=== PATIENT | female | born 1950 | race Caucasian/White ===

== ENCOUNTER 2017-01-20 11:01 | Outpatient (CLI) | payer MEDICARE, OTHER | END 2017-01-20 11:02 | disposition home or self-care (01) | LOC: DI 11:01 | PROVIDERS: ATTEND Internal Medicine Cardiovascular Disease | DX: I48.91 Unspecified atrial fibrillation (principal); I51.7 Cardiomegaly | CPT/HCPCS: 93306 ==

== ENCOUNTER 2021-02-12 18:06 | Outpatient (CLI) | payer MEDICARE, OTHER | END 2021-02-12 18:07 | disposition EMS.NT | LOC: EMS 18:06 | DX: R10.11 Right upper quadrant pain (principal); R11.10 Vomiting, unspecified; R53.1 Weakness ==

== ENCOUNTER 2021-02-12 19:22 | Emergency (ER) | payer MEDICARE, OTHER ==
[2021-02-12 19:42] LABS: BASOPHILS % (AUTO) 0.3 %; EOSINOPHILS % (AUTO) 0.1 %; HCT - HEMATOCRIT 38.4 % (37.0-47.0); LYMPHOCYTES # (AUTO) 2.2 10^3/uL (1.5-3.5); MEAN CORPUSCULAR HEMOGLOBIN 27.4 pg (27.0-31.0); MEAN CORPUSCULAR HGB CONC 31.3 g/dL (32.0-36.0); MEAN CORPUSCULAR VOLUME 87.7 fL (81.0-99.0); MEAN PLATELET VOLUME 8.8 fL (7.9-10.8); MONOCYTES # (AUTO) 0.9 10^3/uL (0.0-1.0); MONOCYTES % (AUTO) 6.7 %; NEUTROPHILS # (AUTO) 10.5 10^3/uL (1.5-6.6); NEUTROPHILS % (AUTO) 76.5 %; PLT - PLATELET COUNT 515 10^3/uL (130-450); RED BLOOD COUNT 4.38 10^6/uL (4.20-5.40); RED CELL DISTRIBUTION WIDTH 13.2 % (12.0-15.0); WHITE BLOOD COUNT 13.7 x10^3/uL (4.8-10.8)
--- NOTE | 2021-02-12 19:54 | ED Physician Documentation ---
PD HPI NVD - Stated complaint Stated Complaint: VOMITING,CAN'T EAT - Chief complaint Chief Complaint: Abd Pain - History obtained from History obtained from: Patient - History of Present Illness Timing - onset: How many weeks ago (1-2) Timing - duration: Weeks Timing - details: Intermittant Associated symptoms: Abdominal pain. No: Fever Improved by: Other (nothing) Worsened by: Eating Similar symptoms before: No diagnosis Recently seen: Not recently seen - Additonal information Additional information: c/o 1-2 weeks of gradually increasing nausea, vomiting, and upper abdominal pain with PO intake, both solids and liquids. Review of Systems Constitutional: denies: Fever, Chills, Sweats Eyes: reports: Reviewed and negative Ears: reports: Reviewed and negative Nose: reports: Reviewed and negative Throat: reports: Reviewed and negative Cardiac: reports: Reviewed and negative Respiratory: reports: Reviewed and negative GI: reports: Abdominal Pain, Nausea, Vomiting. denies: Abdominal Swelling, Constipation, Diarrhea, Hematemesis, Bloody / black stool : denies: Dysuria, Frequency Skin: reports: Reviewed and negative Musculoskeletal: reports: Reviewed and negative Neurologic: reports: Reviewed and negative PD PAST MEDICAL HISTORY - Past Medical History Past Medical History: Yes - Past Surgical History General: Gastric surgery ("stomach stapling" per patient) - Present Medications Home Medications: Ambulatory Orders Medication Instructions Recorded Confirmed Celecoxib [Celebrex] 200 mg PO DAILY 02/12/21 02/12/21 Metformin HCl [Glucophage] 1,000 mg PO BID 02/12/21 02/12/21 Metoprolol Tartrate [Lopressor] 50 mg PO BID 02/12/21 02/12/21 traMADol [Ultram] 50 mg PO QID PRN 02/12/21 02/12/21 - Allergies Allergies/Adverse Reactions: Allergies Allergy/AdvReac Type Severity Reaction Status Date / Time morphine Allergy Itching Verified 02/12/21 19:29 epinephrine AdvReac Unknown Verified 02/13/21 01:23 - Living Situation Living Situation: reports: With spouse/s.o. Living Arrangement: reports: At home - Social History Does the pt smoke?: No PD ED PE NORMAL - Vitals Vital signs reviewed: Yes - General General: Alert and oriented X 3, No acute distress, Well developed/nourished - HEENT HEENT: Moist mucous membranes - Neck Neck: Supple, no meningeal sign - Cardiac Cardiac: No murmur - Respiratory Respiratory: No respiratory distress, Clear bilaterally - Abdomen Abdomen: Soft, Non distended - Back Back: No CVA TTP - Derm Derm: Normal color, Warm and dry, No rash - Extremities Extremities: No edema PD ED PE EXPANDED - Cardiac Cardiac: Tachy, Regular Rhythm - Abdomen Abdomen: Tender to palpation, LUQ, LLQ Results - Vitals Vitals: Vital Signs - 24 hr 02/13/21 02/13/21 02/13/21 11:13 14:00 15:27 Temperature 36.7 C 36.7 C Heart Rate 108 H 115 H 115 H Respiratory 23 20 20 Rate Blood Pressure 141/89 H 143/58 H 122/70 O2 Saturation 100 96 96 02/13/21 17:00 Temperature 36.7 C Heart Rate 112 H Respiratory 16 Rate Blood Pressure 125/98 H O2 Saturation 96 Oxygen O2 Source Room air - Labs Labs: Microbiology 02/13/21 02:00 Urine Culture - Preliminary Urine,Clean Catch Laboratory Tests 02/12/21 02/12/21 02/12/21 19:38 19:38 22:56 WBC 13.7 H RBC 4.38 Hgb 12.0 Hct 38.4 MCV 87.7 MCH 27.4 MCHC 31.3 L RDW 13.2 Plt Count 515 H MPV 8.8 Neut # (Auto) 10.5 H Lymph # (Auto) 2.2 Hinds # (Auto) 0.9 Eos # (Auto) 0.0 Baso # (Auto) 0.0 Absolute Nucleated RBC 0.00 Nucleated RBC % 0.0 Sodium 138 Potassium 3.7 Chloride 87 L Carbon Dioxide 33 H Anion Gap 18.0 H BUN 18 Creatinine 1.2 H Estimated GFR (MDRD) 44 L Glucose 251 H Lactic Acid 1.8 Calcium 8.5 Total Bilirubin 1.7 H AST 20 ALT 24 Alkaline Phosphatase 148 H Total Protein 8.3 H Albumin 2.9 L Globulin 5.4 H Albumin/Globulin Ratio 0.5 L Lipase 106 H Urine Color Urine Clarity Urine pH Ur Specific Davison Urine Protein Urine Glucose (UA) Urine Ketones Urine Occult Blood Urine Nitrite Urine Bilirubin Urine Urobilinogen Ur Leukocyte Esterase Urine RBC Urine WBC Ur Squamous Epith Cells Urine Bacteria Ur Microscopic Review Urine Culture Comments Nasal Adenovirus (PCR) Nasal B. parapertussis DNA (PCR) Nasal Coronavir 229E PCR Nasal Coronavir HKU1 PCR Nasal Coronavir NL63 PCR Nasal Coronavir OC43 PCR Nasal Enterovir/Rhinovir PCR Nasal Influenza B PCR Nasal Influenza A PCR Nasal Parainfluen 1 PCR Nasal Parainfluen 2 PCR Nasal Parainfluen 3 PCR Nasal Parainfluen 4 PCR Nasal RSV (PCR) Nasal B.pertussis DNA PCR Nasal C.pneumoniae (PCR) Carl Human Metapneumo PCR Nasal M.pneumoniae (PCR) Nasal SARS-CoV-2 (PCR) 02/13/21 02/13/21 00:36 02:00 WBC RBC Hgb Hct MCV MCH MCHC RDW Plt Count MPV Neut # (Auto) Lymph # (Auto) Hinds # (Auto) Eos # (Auto) Baso # (Auto) Absolute Nucleated RBC Nucleated RBC % Sodium Potassium Chloride Carbon Dioxide Anion Gap BUN Creatinine Estimated GFR (MDRD) Glucose Lactic Acid Calcium Total Bilirubin AST ALT Alkaline Phosphatase Total Protein Albumin Globulin Albumin/Globulin Ratio Lipase Urine Color YELLOW Urine Clarity SL. CLOUDY Urine pH 7.5 Ur Specific Davison 1.010 Urine Protein 100 H Urine Glucose (UA) NEGATIVE Urine Ketones 15 H Urine Occult Blood NEGATIVE Urine Nitrite NEGATIVE Urine Bilirubin NEGATIVE Urine Urobilinogen 0.2 (NORMAL) Ur Leukocyte Esterase NEGATIVE Urine RBC 0-5 Urine WBC 6-10 H Ur Squamous Epith Cells FEW Squamous Urine Bacteria Many H Ur Microscopic Review INDICATED Urine Culture Comments INDICATED Nasal Adenovirus (PCR) NOT DETECTED Nasal B. parapertussis DNA (PCR) NOT DETECTED Nasal Coronavir 229E PCR NOT DETECTED Nasal Coronavir HKU1 PCR NOT DETECTED Nasal Coronavir NL63 PCR NOT DETECTED Nasal Coronavir OC43 PCR NOT DETECTED Nasal Enterovir/Rhinovir PCR NOT DETECTED Nasal Influenza B PCR NOT DETECTED Nasal Influenza A PCR NOT DETECTED Nasal Parainfluen 1 PCR NOT DETECTED Nasal Parainfluen 2 PCR NOT DETECTED Nasal Parainfluen 3 PCR NOT DETECTED Nasal Parainfluen 4 PCR NOT DETECTED Nasal RSV (PCR) NOT DETECTED Nasal B.pertussis DNA PCR NOT DETECTED Nasal C.pneumoniae (PCR) NOT DETECTED Carl Human Metapneumo PCR NOT DETECTED Nasal M.pneumoniae (PCR) NOT DETECTED Nasal SARS-CoV-2 (PCR) NOT DETECTED - Rads (name of study) CT A/P with IV contrast Radiology: Prelim report reviewed, See rad report RUQ US Radiology: Prelim report reviewed, See rad report PD MEDICAL DECISION MAKING - ED course Complexity details: reviewed results, re-evaluated patient, considered differential, d/w patient ED course: US findings are c/w cholecystitis. CT A/P demonstrates not only acute cholecystitis, but also findings of foci of air adjacent to the gallbladder "could be from a fistula with the colon and/or gangrenous cholecysitis or emphysematous cholecystitis with perforation" (per radiologist's interpretation). I did not receive a reading on the CT from radiology until 12:10 AM. At 12:15 AM, I discussed the case with Dr. Peoples. He will review films and call back. [place] back from Dr. Peoples at approximately 12:25, he recommends transfer to facility that is appropriate for patient's BMI (Dr. Peoples says [facility] has limit of 52 BMI). No beds available at [facility]. As of 01:00, [facility] [place] been contacted by [facility] and we are waiting to hear back from them. Patient is resting comfortably, NAD and awake, alert, and oriented x 3. On abdominal exam, she has epigastric and LUQ tenderness, now with mild/moderate RUQ tenderness but there is no rebound nor guarding. I heard back from Dr. Middleton, surgeon dental practitioner at [facility]. He says he cannot accept patient due to lack of beds. Subsequently I spoke with Dr. Garland at [facility]; cannot accept due to lack of beds but patient will be kept on waiting list. [facility] contacted. No beds available, will be placed on wait list. [facility] contacted, no beds available. I recontacted Dr. Peoples, reiterates patient cannot be admitted to [facility] and recommends continuing to await bed availability elsewhere. At end of my shift, [facility] [place] and they again say they cannot take this patient due to lack of bed availability. also was recontacted and they also say they have no beds but will call back when one is available. Care of patient signed out to Dr. Zhang at end of my shift as patient awaits disposition. I then heard from Dr. Townsend, dental practitioner surgery at [facility]. He says no beds are available and that [facility] would not have beds any different from [facility] Departure - Departure Disposition: 02 Transfer Acute Care Hosp Clinical Impression: Cholecystitis Discharge Date/Time: 02/13/21 17:14
[2021-02-12 19:55] LABS: ALBUMIN 2.9 g/dL (3.2-5.5); ALBUMIN/GLOBULIN RATIO 0.5 (1.0-2.2); BILIRUBIN,TOTAL 1.7 mg/dL (0.2-1.0); CALCIUM 8.5 mg/dL (8.5-10.3); CREATININE 1.2 mg/dL (0.4-1.0); POTASSIUM 3.7 mmol/L (3.5-5.0); TOTAL PROTEIN 8.3 g/dL (6.7-8.2)
[2021-02-12] MEDS ORDERED: SODIUM CHLORIDE 0.9% 1,000 ML IV STA (19:56)
[2021-02-12] MEDS ORDERED: ONDANSETRON 4 MG/2 ML VIAL IVP STA (19:56)
[2021-02-12] MEDS ORDERED: IOVERSOL 320 100 ML VIAL IVP ONE ×2 (22:02→22:41)
[2021-02-13] MEDS ORDERED: PIPERACILLIN/TAZOBACTAM 4.5 GM in SODIUM CHLORIDE 0.9% MINIBAG 100 ML IV STA (00:32)
[2021-02-13] MEDS ORDERED: SODIUM CHLORIDE 0.9% 1,000 ML IV STA ×3 (00:44→15:28)
[2021-02-13 03:33] LABS: B. PARAPERTUSSIS- RESP PCR PAN NOT DETECTED; B. PERTUSSIS- RESP PCR PANEL NOT DETECTED; C. PNEUMONIAE- RESP PCR PANEL NOT DETECTED; CORONAVIRUS 229E-RESP PCR NOT DETECTED; CORONAVIRUS HKU1-RESP PCR NOT DETECTED; CORONAVIRUS NL63-RESP PCR NOT DETECTED; CORONAVIRUS OC43-RESP PCR NOT DETECTED; HUMAN METAPNEUMOVIRUS NOT DETECTED; INFLUENZA A- RESP PCR PANEL NOT DETECTED; INFLUENZA B - RESP PCR PANEL NOT DETECTED; M. PNEUMONIAE- RESP PCR PANEL NOT DETECTED; PARAINFLUENZA VIRUS 1 NOT DETECTED; PARAINFLUENZA VIRUS 2 NOT DETECTED; PARAINFLUENZA VIRUS 3 NOT DETECTED; PARAINFLUENZA VIRUS 4 NOT DETECTED; RHINOVIRUS/ENTEROVIRUS NOT DETECTED; RSV- RESP PCR PANEL NOT DETECTED; SARS-CoV-2 -RESP PCR PANEL NOT DETECTED
[2021-02-13 03:35] LABS: BILIRUBIN,URINE NEGATIVE (NEGATIVE); CLARITY,URINE SL. CLOUDY (CLEAR); GLUCOSE, URINE (UA) NEGATIVE (NEGATIVE); ICTOTEST,URINE NEGATIVE; KETONES,URINE (UA) 15 mg/dL (NEGATIVE); LEUKOCYTE ESTERASE, URINE NEGATIVE (NEGATIVE); NITRITE,URINE NEGATIVE (NEGATIVE); OCCULT BLOOD,URINE NEGATIVE (NEGATIVE); PH,URINE 7.5 PH (5.0-7.5); PROTEIN,URINE 100 mg/dL (NEGATIVE); UROBILINOGEN,URINE 0.2 (NORMAL) E.U./dL (NORMAL)
[2021-02-13 03:36] LABS: BACTERIA,URINE Many /HPF (None Seen); RBC,URINE 0-5 /HPF (0-5); SQUAMOUS EPITHELIAL CELL,UR FEW Squamous (<= Few)
--- NOTE | 2021-02-13 10:02 | ED Physician Documentation ---
ED Addendum - Addendum Addendum: 02/13/21 10:00 70-year-old female with history of hypertension and atrial fibrillation has had a gastric stapling done more than 30 years ago has developed a difficulty eating 2 weeks ago with an acute pain followed by nausea and vomiting. Over the past 4 days she is not been able to keep nothing down and she has become dehydrated. She is presented to the emergency department with chief complaint of not able to eat. She is found to have Lyndsay cystitis with the appearance of potential gangrenous gallbladder. She has been hydrated overnight and no beds are available to handle this bariatric patient. Findings on her CT scan appear acute and are critical. The patient herself does not appear particularly ill she does appear dehydrated. She is not complaining of any significant pain. She is complaining that she is unable to tolerate oral intake. She does have elevated white blood cell count. She is getting intravenous fluid and Zosyn.This morning we are awaiting a potential bed at [facility] for this afternoon. We did consider potential for emergency department to emergency department transfer for critical finding and the patient appeared to well to invoke this critical maneuver. 02/13/21 10:03 02/13/21 13:00 hospitalist at [facility] has called us back willing to accept the patient in transfer.
[2021-02-13] MEDS ORDERED: PIPERACILLIN/TAZOBACTAM 3.375 GM in SODIUM CHLORIDE 0.9% MINIBAG 100 ML IV STA (10:06)
--- NOTE | 2021-02-13 10:58 | HISTORY & PHYSICAL EXAMINATION ---
Chief Complaint - Chief Complaint Chief Complaint: abdominal pain with nausea and vomiting History of Present Illness - History Obtained From Records Reviewed: yes History obtained from: pt and Exam Limitations: none - History of Present Illness HPI Comment/Other: She has had nearly 2 weeks of abdominal pain which more recently has localized to the epigastric and right upper quadrant area. She had chills 2 days ago. She had nausea and vomiting yesterday. In retrospect she had an episode of similar pain 1.5 years ago that lasted 2 to 3 days and a few episodes of mild pain in the interim. She was encouraged to go to the ED by her . Ct scan was obtained showing cholecystitis with small posterior abscess and infection/ inflammation involving the hepatic flexure colon, duodenum, common hepatic duct/ common bile duct. History - Past Medical History Endocrine/Autoimmune: reports: Type 2 diabetes - Past Surgical History General: reports: Gastric surgery ("stomach stapling" per patient) - Family & Social History Living arrangement: At home Living Situation: With spouse/s.o. - POLST Patient has POLST: No Meds/Allgy - Home Medications Home Medications: Ambulatory Orders Medication Instructions Recorded Confirmed Celecoxib [Celebrex] 200 mg PO DAILY 02/12/21 02/12/21 Metformin HCl [Glucophage] 1,000 mg PO BID 02/12/21 02/12/21 Metoprolol Tartrate [Lopressor] 50 mg PO BID 02/12/21 02/12/21 traMADol [Ultram] 50 mg PO QID PRN 02/12/21 02/12/21 - Allergies Allergies/Adverse Reactions: Allergies Allergy/AdvReac Type Severity Reaction Status Date / Time morphine Allergy Itching Verified 02/12/21 19:29 epinephrine AdvReac Unknown Verified 02/13/21 01:23 Review of Systems - Other Findings Other Findings: 10 pt ros as above otherwise unremarkable Exam - Vital Signs Reviewed Vital Signs: Yes Vital Signs: Vital Signs x48h Pulse Resp BP Pulse Ox 02/13/21 06:23 114 H 15 157/102 H 96 02/13/21 05:19 16 02/13/21 04:53 112 H 15 136/81 H 99 02/13/21 04:01 117 H 17 96 02/13/21 03:29 17 150/90 H 98 - Physical Exam General Appearance: positive: No acute distress, Alert Eyes Bilateral: positive: PERRL, EOMI, No scleral icterus ENT: positive: No signs of dehydration Neck: positive: No JVD Respiratory: positive: No respiratory distress Cardiovascular: positive: Regular rate & rhythm Abdomen: positive: No distention, Other (minimal right upper quadrant tenderness. no peritoneal signs) Skin: positive: Color nml Neurologic/Psychiatric: positive: Oriented x3 Conclusion/Plan - Problem List (1) Cholecystitis Conclusion/Plan: She has very significant gallbladder inflammation with hepatic flexure colon involvement and duodenal, hepatic duct involvement. She appears well and has a benign abdomen. We discussed in this situation surgery could make her worse instead of better. Risk of injury with surgery is high. An alternative may be medical management with cholecystostomy / drainage and antibiotics. She and her are very pleasant and understanding. Await transfer to hospital which can offer a higher level or care which includes interventional radiology recommended - Lab Results Fish Bones: 02/12/21 19:38 02/12/21 19:38 - Diagnostic Imaging Results Diagnostic Imaging Results: positive: Read independently (as above significant gallbladder inflammation with involvement duodenum, hepatic flexure colon, common bile duct with abscess/ small phlegmon)
--- NOTE | 2021-02-13 11:24 | Ultrasound Report ---
PROCEDURE: Abdomen Limited INDICATIONS: upper abdominal pain with PO intake TECHNIQUE: Real-time scanning was performed of the abdominal and retroperitoneal organs, with image documentatio n. COMPARISON: None. FINDINGS: Liver: Liver is enlarged measuring 17.9 cm. No focal lesion is identified. Echogenicity is not well evaluated secondary to patient habitus. There is suspected to be a component of steatosis. Gallbladder: Multiple foci of increased echogenicity are present within the gallbladder lumen. Wall i s thickened measuring 4.0 mm. Biliary ducts: No gross intra or extrahepatic biliary dilation. However, this is considered limited i n evaluation. . Kidneys: Kidneys are normal in size and echotexture. Right kidney measures 9.7 cm long. No hydrone phrosis or nephrolithiasis. No solid masses. IMPRESSION: Significantly limited exam. Cholelithiasis with gallbladder wall thickening most likely technical support representative of acute cholecystitis. The above findings are concordant with preliminary report. Reviewed by: Nevin Anne MD on 02/13/2021 11:23 AM PDT Approved by: Nevin Anne MD on 02/13/2021 11:23 AM PDT Station ID: [id number]
--- NOTE | 2021-02-13 14:07 | CT Report ---
PROCEDURE: Abdomen/Pelvis W INDICATIONS: abd. pain CONTRAST: IV CONTRAST: Optiray 320 ml: 100 PO CONTRAST: *NO PO CONTRAST TECHNIQUE: After the administration of oral contrast, 5 mm thick sections acquired from the diaphragms to the sy mphysis. 5 mm thick coronal and sagittal reformats were acquired. For radiation dose reduction, the following was used: automated exposure control, adjustment of mA and/or kV according to patient siz e. COMPARISON: None. FINDINGS: Image quality: Excellent. ABDOMEN: Lung bases: Lung bases are clear. Heart size is normal. Solid organs: Liver is enlarged with steatosis. The spleen is normal in size and enhancement. Gall bladder demonstrates stones and wall thickening. Air is noted at the fundus, as well as the fundus/l iver interface. There is an adjacent loop of bowel with ill defined fluid and air. Biliary system is non dilated. Pancreas enhances normally. No adrenal nodules. Kidneys demonstrate normal size an d enhancement, without hydronephrosis. Nodes and vessels: No retroperitoneal or mesenteric adenopathy by size criteria. Aorta and inferior vena cava are normal in size. Miscellaneous: Fat containing ventral hernia is present. PELVIS: Genitourinary: Bladder wall thickness is normal. Miscellaneous: No inguinal hernias or adenopathy. Bones: No suspicious bony lesions. No vertebral body compression fractures. IMPRESSION: 1. Gallstones with wall thickening and air most suggestive of cholecystitis, concerning for gangreno us/emphysematous cholecystitis with perforation. 2. Potential fistulous connection with adjacent bowel loop is present. The above findings are concordant with preliminary report. Reviewed by: Nevin Anne MD on 02/13/2021 2:06 PM PDT Approved by: Nevin Anne MD on 02/13/2021 2:06 PM PDT Station ID: [id number]
[2021-02-13 17:02] VITALS: BP 125/98
== END 2021-02-13 17:14 | disposition short-term general hospital (02) ==
LOC: ED 19:22
DX: K81.0 Acute cholecystitis (principal); K63.0 Abscess of intestine; E86.0 Dehydration; Z98.84 Bariatric surgery status; Z68.44 Body mass index [BMI] 60.0-69.9, adult; I10 Essential (primary) hypertension; E11.9 Type 2 diabetes mellitus without complications; Z79.84 Long term (current) use of oral hypoglycemic drugs; Z20.822 Contact with and (suspected) exposure to COVID-19
CPT/HCPCS: 36415; 74177; 76705; 80053; 81001; 83605; 83690; 85025; 87086; 87181; 87631; 96361; 96365; 96366; 96375; 99283; 99285; Q9967; 0202U; 81003

== ENCOUNTER 2022-03-31 09:06 | Outpatient (CLI) | payer MEDICARE, OTHER | END 2022-03-31 09:07 | disposition home or self-care (01) | LOC: DI 09:06 | PROVIDERS: ATTEND Student in an Organized Health Care Education/Training Program | DX: Z01.810 Encounter for preprocedural cardiovascular examination (principal); I48.91 Unspecified atrial fibrillation | CPT/HCPCS: 93306 ==

== ENCOUNTER 2022-04-08 06:46 | Day surgery (SDC) | payer MEDICARE, OTHER ==
[2022-04-08] MEDS ORDERED: LACTATED RINGERS 1,000 ML IV ONE ×2 (07:17→08:48)
[2022-04-08] MEDS ORDERED: KETAMINE 500 MG/10 ML VIAL ONE (07:33)
[2022-04-08] MEDS ORDERED: MIDAZOLAM 2 MG/2 ML VIAL ONE (07:33)
[2022-04-08] MEDS ORDERED: PROPOFOL 200 MG/20 ML VIAL IVP ONE ×4 (07:39→09:21)
--- NOTE | 2022-04-08 08:31 | ANESTHESIA ---
Pre-Anesthesia VS, & Labs - Diagnosis ANEMIA - Procedure EGD/Colonoscopy Vital Signs: Temp Pulse Resp BP Pulse Ox 36.3 C L 113 H 20 142/78 H 93 04/08/22 07:08 04/08/22 07:08 04/08/22 07:08 04/08/22 07:08 04/08/22 07:08 Height: 5 ft 5 in Weight (kg): 170.1 kg Body Mass Index: 62.4 BMI Classification: Morbidly Obese - NPO >8 hours - Is Patient ?: No - Lab Results Current Lab Results: Laboratory Tests 04/08/22 07:11: POC Whole Bld Glucose 162 H Home Medications and Allergies Home Medications: Ambulatory Orders Acetaminophen [Pain Relief Extra Strength] 500 mg PO QID PRN 03/24/22 Furosemide [Lasix] 40 mg PO DAILY PRN 03/24/22 LORazepam [Ativan] 1 mg PO QPM PRN 03/24/22 Celecoxib [Celebrex] 200 mg PO DAILY 02/12/21 Metformin HCl [Glucophage] 1,000 mg PO BID 02/12/21 Metoprolol Tartrate [Lopressor] 25 mg PO BID 02/12/21 traMADol [Ultram] 100 mg PO QID 02/12/21 Albuterol Sulf [Ventolin Hfa Inhaler] 2 puffs INH Q4HR PRN 03/06/22 Aspirin [[place] Aspirin] 81 mg PO DAILY 03/06/22 oxyCODONE [Roxicodone] 1 - 2 tab PO Q6HR PRN 03/06/22 Acetaminophen [Pain Relief Extra Strength] 500 mg PO QID PRN 03/24/22 Furosemide [Lasix] 40 mg PO DAILY PRN 03/24/22 LORazepam [Ativan] 1 mg PO QPM PRN 03/24/22 Allergies/Adverse Reactions: Allergies Allergy/AdvReac Type Severity Reaction Status Date / Time hydrocodone [From Vicodin] Allergy Respiratory Verified 04/08/22 06:17 morphine Allergy Itching Verified 04/08/22 06:17 epinephrine AdvReac increased Verified 04/08/22 06:17 heart rate Anes History & Medical History - Anesthetic History Anesthesia Complications: reports: No previous complications Family history of Anesthesia Complications: Denies Family history of Malignant Hyperthermia: Denies - Medical History Cardiovascular: reports: Congestive heart failure, Hypertension, Atrial fibrillation Pulmonary: reports: Shortness of breath Gastrointestinal: reports: None, Other (pos giuac) Urinary: reports: None Musculoskeletal: reports: Osteoarthritis, Other (uses wheelchair) Endocrine/Autoimmune: reports: Type 2 diabetes Skin: reports: None, Rosacea Smoking Status: Never smoker Psychosocial: reports: Alcohol History of Cancer?: No Other Past Medical History: morbid obesity. BMI 62.4 - Surgical History General: reports: Cholecystectomy, Gastric surgery, Other Exam General: Alert, Oriented x3, Cooperative Dental: WNL Mouth Openin Fingerbreadth Mallampati classification: IV Thyromental Distance: less than 4 cm Respiratory: Lungs clear Cardiovascular: Regular rate Neurological: Other (wheelchair) Mental/Cognitive Status: Alert/Oriented X3 Plan Anesthesia Type: General Consent for Procedure(s) Verified and Reviewed: Yes Code Status: Attempt Resuscitation ASA classification: 4-Incapacitating disease Is this case an emergency?: No
[2022-04-08 09:47] VITALS: BP 149/68
--- NOTE | 2022-04-08 13:17 | ANESTHESIA POST OP EVALUATION ---
Anesthesia Post Eval - Post Anesthesia Eval Vitals: Last Vital Signs Temp 36.3 C L 04/08/22 09:30 Pulse 102 H 04/08/22 09:30 Resp 20 04/08/22 09:30 BP 149/68 H 04/08/22 09:30 Pulse Ox 95 04/08/22 09:30 CV Function Including HR & BP: Stable Pain Control: Satisfactory Nausea & Vomiting: Negative Mental Status: Baseline Respiratory Status: Airway Patent Hydration Status: Satisfactory Anesthesia Complications: None
== END 2022-04-08 06:47 | disposition home or self-care (01) ==
LOC: SDS 06:46
PROVIDERS: ATTEND Surgery
PROC: 0DJD8ZZ Inspection of Lower Intestinal Tract, Via Natural or Artificial Opening Endoscopic (ICD-10-PCS; principal; 2022-04-08 07:30)
PROC: 0DJ08ZZ Inspection of Upper Intestinal Tract, Via Natural or Artificial Opening Endoscopic (ICD-10-PCS; 2022-04-08 07:30)
DX: D50.9 Iron deficiency anemia, unspecified (principal); K31.89 Other diseases of stomach and duodenum; K57.30 Diverticulosis of large intestine without perforation or abscess without bleeding; E66.01 Morbid (severe) obesity due to excess calories; Z68.44 Body mass index [BMI] 60.0-69.9, adult; I11.0 Hypertensive heart disease with heart failure; I50.9 Heart failure, unspecified; I48.91 Unspecified atrial fibrillation; E11.9 Type 2 diabetes mellitus without complications
CPT/HCPCS: 43235; 45378; J7120

== ENCOUNTER 2022-11-08 06:42 | Outpatient (CLI) | payer MEDICARE, OTHER | END 2022-11-08 06:43 | disposition critical access hospital (66) | LOC: EMS 06:42 | DX: R10.13 Epigastric pain (principal); R11.0 Nausea; R00.0 Tachycardia, unspecified | CPT/HCPCS: A0425; A0429 ==

== ENCOUNTER 2022-11-08 07:19 | Emergency (ER) | payer MEDICARE, OTHER ==
--- NOTE | 2022-11-08 07:39 | ED Physician Documentation ---
PD HPI ABD PAIN - Stated complaint Stated Complaint: ABD PX - Chief complaint Chief Complaint: Abd Pain - History obtained from History obtained from: Patient - History of Present Illness Timing - onset: How many weeks ago (2) Timing - duration: Weeks (2) Timing - details: Gradual onset, Still present, Waxing and waning Quality: Cramping, Aching, Pain Location: RUQ, Epigastric Improved by: Laying still. No: Vomiting Worsened by: Eating, Moving, Breathing, Palpation Associated symptoms: Nausea. No: Fever, Diarrhea, Constipation, Melena Similar symptoms before: Diagnosis Review of Systems Constitutional: denies: Fever, Chills Nose: denies: Rhinorrhea / runny nose, Congestion Throat: denies: Sore throat Cardiac: reports: Palpitations (feeling of heart going fast last night/today.). denies: Chest pain / pressure Respiratory: denies: Cough GI: reports: Abdominal Pain, Nausea, Vomiting. denies: Abdominal Swelling, Diarrhea, Bloody / black stool Skin: denies: Rash, Lesions Neurologic: reports: Generalized weakness. denies: Focal weakness, Altered mental status PD PAST MEDICAL HISTORY - Past Medical History Cardiovascular: Congestive heart failure, Hypertension, Atrial fibrillation Respiratory: Shortness of breath Endocrine/Autoimmune: Type 2 diabetes GI: None, Other (pos giuac) : None HEENT: Chronic vision loss Psych: None Musculoskeletal: Osteoarthritis, Other (uses wheelchair) Derm: None, Rosacea - Past Surgical History General: Cholecystectomy, Gastric surgery, Other - Present Medications Home Medications: Ambulatory Orders Medication Instructions Recorded Confirmed Celecoxib [Celebrex] 200 mg PO DAILY 02/12/21 11/08/22 Metformin HCl [Glucophage] 1,000 mg PO BID 02/12/21 11/08/22 Metoprolol Tartrate [Lopressor] 50 mg PO BID 02/12/21 11/08/22 traMADol [Ultram] 100 mg PO Q8H PRN 02/12/21 11/08/22 Albuterol Sulf [Ventolin Hfa 2 puffs INH Q4HR PRN 03/06/22 03/24/22 Inhaler] Aspirin [[place] Aspirin] 81 mg PO DAILY 03/06/22 11/08/22 oxyCODONE [Roxicodone] 1 - 2 tab PO Q6HR PRN 03/06/22 11/08/22 Acetaminophen [Pain Relief Extra 500 mg PO QID PRN 03/24/22 03/24/22 Strength] Furosemide [Lasix] 40 mg PO DAILY PRN 03/24/22 03/24/22 LORazepam [Ativan] 1 mg PO QPM PRN 03/24/22 03/24/22 traZODone [Desyrel] 50 mg PO HS PRN 11/08/22 11/08/22 - Allergies Allergies/Adverse Reactions: Allergies Allergy/AdvReac Type Severity Reaction Status Date / Time hydrocodone [From Vicodin] Allergy Respiratory Verified 11/08/22 07:29 morphine Allergy Itching Verified 11/08/22 07:29 epinephrine AdvReac increased Verified 11/08/22 07:29 heart rate - Social History Does the pt smoke?: No Smoking Status: Never smoker Does the pt drink ETOH?: Yes Does the pt have substance abuse?: No - POLST Patient has POLST: No PD ED PE NORMAL - Vitals Vital signs reviewed: Yes - General General: Alert and oriented X 3, Well developed/nourished, Other (elevated BMI 61) - HEENT HEENT: PERRL, EOMI (minimally icteric), Moist mucous membranes, Pharynx benign - Neck Neck: Supple, no meningeal sign, No adenopathy - Cardiac Cardiac: No: RRR (tachycardic but regular at 140s. ) - Respiratory Respiratory: No respiratory distress, Clear bilaterally - Abdomen Abdomen: Normal bowel sounds, Soft, Non distended, No organomegaly, Other (obese with RUQ tender to percussion and palpation. No rebound nor referred tenderness. Lower abd not tender. ) - Rectal Rectal: Deferred - Back Back: No CVA TTP, No spinal TTP - Derm Derm: Normal color, Warm and dry Results - Vitals Vitals: Vital Signs - 24 hr 11/08/22 11/08/22 11/08/22 07:29 08:59 10:00 Temperature 36.9 C Heart Rate 155 H 132 H 135 H Respiratory 22 26 H 25 H Rate Blood Pressure 162/100 H 159/96 H O2 Saturation 96 94 94 11/08/22 11/08/22 11/08/22 10:45 13:00 14:11 Temperature 36.7 C Heart Rate 118 H 113 H 117 H Respiratory 22 19 20 Rate Blood Pressure 184/108 H 185/111 H 148/63 H O2 Saturation 96 96 96 11/08/22 11/08/22 16:00 16:40 Temperature Heart Rate 100 116 H Respiratory 22 23 Rate Blood Pressure 194/81 H 163/78 H O2 Saturation 95 96 Oxygen O2 Source Room air - EKG (time done) 08:29 EKG releavant findings:: EKG personally interpreted by author of this note. Relevant findings are: Rate: Rate (enter#) (139) Rhythm: Sinus tachycardia Hanna: Normal Intervals: Normal FL QRS: Normal Ischemia: Normal ST segments. No: ST elevation c/w ischemia, ST depression - Labs Labs: Laboratory Tests 11/08/22 11/08/22 11/08/22 08:45 10:10 16:00 WBC 11.1 H RBC 5.50 H Hgb 14.9 Hct 48.5 H MCV 88.2 MCH 27.1 MCHC 30.7 L RDW 15.1 H Plt Count 229 MPV 9.9 Neut # (Auto) 9.5 H Lymph # (Auto) 0.7 L [place] # (Auto) 0.8 Eos # (Auto) 0.0 Baso # (Auto) 0.0 Absolute Nucleated RBC 0.00 Nucleated RBC % 0.0 Manual Slide Review Indicated Platelet Estimate NORMAL (130-450,000) Platelet Morphology PLATELET CLUMPING RBC Morph Micro Appear NORMAL APPEARANCE Sodium 137 Potassium 4.9 Chloride 96 L Carbon Dioxide 29 Anion Gap 12.0 BUN 12 Creatinine 1.3 H Estimated GFR (MDRD) 40 L Glucose 203 H Calcium 9.1 Magnesium 1.4 L Iron 32 TIBC 461 H % Saturation 7 L Transferrin 329 Total Bilirubin 6.5 H AST 152 H ALT 204 H Alkaline Phosphatase 152 H Total Protein 7.8 Albumin 3.5 Globulin 4.3 H Albumin/Globulin Ratio 0.8 L Lipase 68 H SARS-CoV-2 (PCR) NOT DETECTED - Rads (name of study) abd/pelvic CT Relevant Findings:: Prelim report reviewed (Folded shape of the gallbladder but no wall thickening or surrounding fluid. No obvious stones. Common bile duct is dilated at 1.6 cm. And intrahepatic ducts are dilated as well.), See rad report UQ U/S Relevant Findings:: Prelim report reviewed (Preliminary report from the highway maintenance technician and then radiology report was concordant with the CT showing 1.6 cm common bile duct. Unusual shape of the gallbladder but no signs of inflammation.) PD Medical Decision Making - ED course Complexity details: reviewed results (The patient does have tachycardia on the monitor. It appears regular. EKG showed a sinus tachycardia. She is likely some dehydrated and is in pain and is also missed her metoprolol for 2 days likely accounting for the above. She is given IV fluids and pain medicine and metoprolol.) Drug Therapy Requiring Monitoring for Toxicity: She was given IV fluids as well as antiemetic and some IV Dilaudid for pain. She has been without her beta-blockers for a few days as well as having pain and I dehydration from poor intake. She was given metoprolol 5 mg IV x2 and then an oral dose to replace what she had not had of her usual medicines. The combination of treating with fluids and pain medicine and beta-broderick got her heart rate down to approximately 100. ED course: The patient has a history of gallbladder cholecystitis with abscess formation that needed percutaneous draining and subsequent surgery that was a partial cholecystectomy according to the patient. This was subsequently confirmed by the tool design drafter Orion Stuart. The patient has had upper abdominal pain similar to her gallbladder issue previously. She has pain nausea and vomiting. No fevers. Labs are showing an elevated bilirubin of 6.5 with previous bilirubins being in the normal range. Her LFTs are also elevated moderately with AST and ALT in the 100-200 range. Lipase was mildly elevated as well. Imaging was done with a CT scan of the abdomen initially. It showed a irregularly shaped gallbladder but no surrounding fluid or edema. No stones were seen., Bile duct was dilated at 1.6 cm. No obvious stone seen. Ultrasound was done to complement the findings of this and showed the common bile duct again at 1.6 cm and a irregularly-shaped gallbladder but no signs of inflammation. The common bile duct distal and was poorly seen due to the patient's habitus. The patient was given IV fluids along with antiemetics and nausea medicine and pain medicine including Dilaudid caitie fentanyl IV and Compazine IV. This did provide reasonable effect in her symptoms. There initially was some difficulty getting IV started and anesthesia had to do it by ultrasound. The patient had a dose of fentanyl 40 mcg IM done prior to the IV as well. The patient had the above-noted labs and imaging. She remained reasonably comfortable with regard to her abdomen pain. She is given metoprolol 5 mg IV x2 for improvement on her heart rate. It is now approximately 100-110. I did talk with the transfer center who then connected me with Orion Stuart the tool design drafter who had performed the patient's procedures. He agreed the patient does likely need ERCP for a blocked common bile duct and directs me to call the transfer center to have them arrange for transfer to the medicine team for further care. He works out of [facility]. Subsequently the transfer center called back and connected me with the hospitalist for medicine team at [facility]. Shey Mohan was the provider and she accepted transfer. Departure - Departure Disposition: 02 Transfer Acute Care Hosp Clinical Impression: Elevated LFTs, Common biliary duct obstruction, Nausea and vomiting, Tachycardia Abdominal pain Qualifiers: Abdominal location: right upper quadrant Qualified Code(s): R10.11 - Right upper quadrant pain Condition: Stable Record reviewed to determine appropriate education?: Yes
[2022-11-08] MEDS ORDERED: SODIUM CHLORIDE 0.9% 1,000 ML IV STA (07:52)
[2022-11-08] MEDS ORDERED: KETOROLAC 15 MG/ML VIAL IVP STA (07:52)
[2022-11-08] MEDS ORDERED: fentaNYL 100 MCG/2 ML VIAL IVP STA ×2 (07:53→18:26)
[2022-11-08] MEDS ORDERED: FAMOTIDINE 20 MG/2 ML VIAL IVP STA (07:53)
[2022-11-08] MEDS ORDERED: PROCHLORPERAZINE 10 MG/2 ML VIAL IVP STA (07:55)
[2022-11-08] MEDS ORDERED: iohexoL-300 100 ML VIAL ONE (08:11)
[2022-11-08] MEDS ORDERED: METOPROLOL 5 MG/5 ML VIAL IVP STA ×3 (08:16→16:59)
[2022-11-08 08:59] LABS: BASOPHILS % (AUTO) 0.3 %; EOSINOPHILS % (AUTO) 0.3 %; HCT - HEMATOCRIT 48.5 % (37.0-47.0); HGB - HEMOGLOBIN 14.9 g/dL (12.0-16.0); LYMPHOCYTES # (AUTO) 0.7 10^3/uL (1.5-3.5); LYMPHOCYTES % (AUTO) 6.5 %; MEAN CORPUSCULAR HEMOGLOBIN 27.1 pg (27.0-31.0); MEAN CORPUSCULAR HGB CONC 30.7 g/dL (32.0-36.0); MEAN CORPUSCULAR VOLUME 88.2 fL (81.0-99.0); MEAN PLATELET VOLUME 9.9 fL (7.9-10.8); MONOCYTES # (AUTO) 0.8 10^3/uL (0.0-1.0); MONOCYTES % (AUTO) 6.9 %; NEUTROPHILS # (AUTO) 9.5 10^3/uL (1.5-6.6); NEUTROPHILS % (AUTO) 85.4 %; PLT - PLATELET COUNT 229 10^3/uL (130-450); RED CELL DISTRIBUTION WIDTH 15.1 % (12.0-15.0); WHITE BLOOD COUNT 11.1 x10^3/uL (4.8-10.8)
[2022-11-08] MEDS ORDERED: fentaNYL 100 MCG/2 ML VIAL IM STA (09:04)
[2022-11-08 09:12] LABS: PLATELET ESTIMATE, MANUAL NORMAL (130-450,000) (NORMAL); PLATELET MORPHOLOGY PLATELET CLUMPING (NORMAL); RBC MORPHOLOGY (MULTIPLE) NORMAL APPEARANCE (NORMAL); SLIDE REVIEW? Indicated
[2022-11-08 10:37] LABS: ALBUMIN 3.5 g/dL (3.2-5.5); ALBUMIN/GLOBULIN RATIO 0.8 (1.0-2.2); BILIRUBIN,TOTAL 6.5 mg/dL (0.2-1.0); CALCIUM 9.1 mg/dL (8.5-10.3); CREATININE 1.3 mg/dL (0.4-1.0); MAGNESIUM 1.4 mg/dL (1.7-2.8); POTASSIUM 4.9 mmol/L (3.5-5.0); TOTAL PROTEIN 7.8 g/dL (6.7-8.2)
[2022-11-08] MEDS ORDERED: iohexoL-300 100 ML VIAL IVP ONE (11:57)
--- NOTE | 2022-11-08 12:17 | CT Report ---
PROCEDURE: ABDOMEN/PELVIS W INDICATIONS: upper abd pain; similar to GB problems CONTRAST: 1100ml omni 300 TECHNIQUE: After the administration of nonionic iodinated contrast, 5 mm thick sections acquired from the diaphr agms to the symphysis. 5 mm thick coronal and sagittal reformats were acquired. For radiation dose reduction, the following was used: automated exposure control, adjustment of mA and/or kV according to patient size. COMPARISON: 02/12/2021 FINDINGS: Image quality: Artifact from patient's body habitus. Lung bases and heart: Basilar atelectasis. Heart size is normal. Advanced multivessel coronary vascul ar calcifications. No pericardial effusion. Liver: There is intrahepatic ductal dilation. No suspicious enhancement. Gallbladder and biliary tree: The gallbladder is irregular in appearance with multiple folds. No radi opaque gallstones identified. Common bile duct is enlarged measuring 1.6 cm. Spleen: Unremarkable. Pancreas: Unremarkable. Adrenals: Unremarkable. Kidneys and ureters: Unremarkable. Bowel and peritoneum: No bowel distension. No pathologic free fluid. A few scattered sigmoid colon di verticula without evidence of diverticulitis. Lymph nodes: No central or retroperitoneal adenopathy. Vessels: Unremarkable. PELVIS Reproductive organs: Unremarkable. Bladder: Unremarkable. Lymph nodes: Unremarkable. Bones: No aggressive osseous abnormality. Other: Fat and bowel containing umbilical hernia. IMPRESSION: Enlargement of the common bile duct with intrahepatic ductal dilation. Recommend clinical correlation for obstruction. Irregular appearance of the gallbladder without wall thickening or surrounding inflammation to sugges t acute cholecystitis. Diverticulosis. Reviewed by: Kanu Casey DO on 11/08/2022 11:16 AM MER Approved by: Kanu Casey DO on 11/08/2022 11:16 AM MER Station ID: [id number]
[2022-11-08] MEDS ORDERED: ACETAMINOPHEN 325 MG TABLET PO STA (14:16)
--- NOTE | 2022-11-08 14:17 | Ultrasound Report ---
PROCEDURE: Abdomen Limited INDICATIONS: CBD dilated. inc LFTs. ? ductal stone. TECHNIQUE: Real-time focused scanning was performed of the abdomen, with image documentation. COMPARISONS: None. FINDINGS: Limited evaluation given body habitus and adjacent bowel gas. Liver: Liver measures 17.2 cm with diffuse echogenicity. Limited evaluation for focal abnormality. P reviously noted intrahepatic ductal dilation not well evaluated on this exam Gallbladder: Not identified. Biliary ducts: Common hepatic ducts are not identified. The common bile duct measures 16 mm in diamet er. Pancreas: Not well seen given adjacent bowel gas. Right kidney: Normal in size and echotexture. Right kidney measures 9.8 cm long. No hydronephrosis o r nephrolithiasis. No solid masses. No complex renal cystic lesions which require follow-up. Miscellaneous: No free abdominal fluid. IMPRESSION: Limited exam Mild duct measures 16 mm in diameter. No definite intrahepatic stone within limits of this exam. Ben mmend correlation for obstruction. Gallbladder was unable to be visualized. Reviewed by: Kanu Casey DO on 11/08/2022 1:16 PM MER Approved by: Kanu Casey DO on 11/08/2022 1:16 PM MER Station ID: [id number]
[2022-11-08] MEDS ORDERED: LACTATED RINGERS 1,000 ML IV STA (14:26)
[2022-11-08] MEDS ORDERED: MAGNESIUM SULFATE 2 GRAM 2 GM/50 ML BAG IV ONE (14:26)
[2022-11-08] MEDS ORDERED: METOPROLOL SUCCINATE 50 MG TABLET PO STA (16:59)
[2022-11-08 18:45] VITALS: BP 139/119
== END 2022-11-08 18:54 | disposition short-term general hospital (02) ==
LOC: EDUNIT# → ED 07:19
DX: K83.1 Obstruction of bile duct (principal); R94.5 Abnormal results of liver function studies; R00.0 Tachycardia, unspecified; T44.7X6A Underdosing of beta-adrenoreceptor antagonists, initial encounter; E86.0 Dehydration; E66.01 Morbid (severe) obesity due to excess calories; Z68.44 Body mass index [BMI] 60.0-69.9, adult; Z20.822 Contact with and (suspected) exposure to COVID-19
CPT/HCPCS: 36415; 74177; 76705; 80053; 83540; 83690; 83735; 84466; 85025; 87635; 93005; 96361; 96365; 96372; 96375; 96376; 99285; A9270; J7120; Q9967; 86850; 86900; 86901

== ENCOUNTER 2022-11-08 18:35 | Outpatient (CLI) | payer MEDICARE, OTHER | END 2022-11-08 23:59 | disposition short-term general hospital (02) | LOC: EMS 18:35 | PROVIDERS: ATTEND Emergency Medicine | DX: K83.1 Obstruction of bile duct (principal) | CPT/HCPCS: A0425; A0428 ==

== ENCOUNTER 2022-11-12 11:36 | Outpatient (CLI) | payer MEDICARE, OTHER | END 2022-11-12 23:49 | disposition EMS.NT | LOC: EMS 11:36 | DX: Z03.89 Encounter for observation for other suspected diseases and conditions ruled out (principal) ==

== ENCOUNTER 2023-01-27 16:49 | Outpatient (CLI) | payer MEDICARE, OTHER | END 2023-01-27 23:59 | disposition EMS.NT | LOC: EMS 16:49 | DX: Z03.89 Encounter for observation for other suspected diseases and conditions ruled out (principal) ==

== ENCOUNTER 2023-06-04 13:03 | Outpatient (CLI) | payer MEDICARE, OTHER | END 2023-06-04 13:04 | disposition EMS.NT | LOC: EMS 13:03 | DX: Z03.89 Encounter for observation for other suspected diseases and conditions ruled out (principal) ==

== ENCOUNTER 2023-06-30 09:50 | Outpatient (CLI) | payer MEDICARE, OTHER | END 2023-06-30 09:51 | disposition EMS.NT | LOC: EMS 09:50 | DX: G89.29 Other chronic pain (principal); Z74.09 Other reduced mobility ==

== ENCOUNTER 2023-07-02 11:04 | Outpatient (CLI) | payer MEDICARE, OTHER | END 2023-07-02 23:59 | disposition critical access hospital (66) | LOC: EMS 11:04 | DX: R10.32 Left lower quadrant pain (principal); R11.2 Nausea with vomiting, unspecified | CPT/HCPCS: A0425; A0429 ==

== ENCOUNTER 2023-07-02 11:44 | Emergency (ER) | payer MEDICARE, OTHER ==
--- NOTE | 2023-07-02 11:52 | ED Physician Documentation ---
History of Present Illness - Stated complaint Stated Complaint: LLQ PX - Additonal information Additional information: Very pleasant 72-year-old female is brought to the emergency department by EMS for evaluation of several days left lower quadrant abdominal pain. She has had some nausea but no vomiting. Believes that her bowel movements have been normal for her but is unsure. Denies chest pain or shortness of air. Patient had a meningioma resected earlier this year. She completed 90 in the 90s at rehab and then was discharged home. She reports that she is mostly bedbound. She reports that she does have some ulcers on her buttock. Her cares for her. She states that she avoids using a diaper. She is unsure of the last time she had a colonoscopy but does not remember if there were abnormal results. She has had no fevers. She declines initial offers for analgesia or antiemetic. Review of Systems Constitutional: denies: Fever, Chills Cardiac: denies: Chest pain / pressure, Palpitations Respiratory: denies: Dyspnea GI: reports: Abdominal Pain, Nausea. denies: Vomiting : reports: Reviewed and negative Skin: reports: Rash, Reviewed and negative Musculoskeletal: reports: Reviewed and negative Neurologic: reports: Reviewed and negative PD PAST MEDICAL HISTORY - Past Medical History Cardiovascular: Congestive heart failure, Hypertension, Atrial fibrillation Respiratory: Shortness of breath Endocrine/Autoimmune: Type 2 diabetes GI: None, Other (pos giuac) : None HEENT: Chronic vision loss Psych: None Musculoskeletal: Osteoarthritis, Other (uses wheelchair) Derm: None, Rosacea - Past Surgical History Past Surgical History: Yes General: Cholecystectomy, Gastric surgery, Other - Present Medications Home Medications: Ambulatory Orders Medication Instructions Recorded Confirmed Celecoxib [Celebrex] 200 mg PO DAILY 02/12/21 11/08/22 Metformin HCl [Glucophage] 1,000 mg PO BID 02/12/21 11/08/22 Metoprolol Tartrate [Lopressor] 50 mg PO BID 02/12/21 11/08/22 traMADol [Ultram] 100 mg PO Q8H PRN 02/12/21 11/08/22 Albuterol Sulf [Ventolin Hfa 2 puffs INH Q4HR PRN 03/06/22 03/24/22 Inhaler] Aspirin [[place] Aspirin] 81 mg PO DAILY 03/06/22 11/08/22 oxyCODONE [Roxicodone] 1 - 2 tab PO Q6HR PRN 03/06/22 11/08/22 Acetaminophen [Pain Relief Extra 500 mg PO QID PRN 03/24/22 03/24/22 Strength] Furosemide [Lasix] 40 mg PO DAILY PRN 03/24/22 03/24/22 LORazepam [Ativan] 1 mg PO QPM PRN 03/24/22 03/24/22 traZODone [Desyrel] 50 mg PO HS PRN 11/08/22 11/08/22 Ciprofloxacin HCl [Cipro] 500 mg PO BID #14 tablet 07/02/23 metroNIDAZOLE [Flagyl] 500 mg PO BID 7 Days #14 tablet 07/02/23 - Allergies Allergies/Adverse Reactions: Allergies Allergy/AdvReac Type Severity Reaction Status Date / Time hydrocodone [From Vicodin] Allergy Respiratory Verified 07/02/23 11:52 morphine Allergy Itching Verified 07/02/23 11:52 epinephrine AdvReac increased Verified 07/02/23 11:52 heart rate - Social History Does the pt smoke?: No Smoking Status: Never smoker Does the pt drink ETOH?: Yes Does the pt have substance abuse?: No - Immunizations Immunizations are current?: Yes - POLST Patient has POLST: No PD ED PE NORMAL - General General: Alert and oriented X 3, No acute distress. No: Well developed/nourished (obese) - HEENT HEENT: Atraumatic - Neck Neck: Supple, no meningeal sign - Cardiac Cardiac: RRR - Respiratory Respiratory: No respiratory distress, Clear bilaterally - Abdomen Abdomen: Normal bowel sounds, Soft. No: Non tender (mild LLQ abd tenderness; exam limited by body habitus) - Derm Derm: Normal color, Warm and dry, No rash - Extremities Extremities: No deformity - Neuro Neuro: Alert and oriented X 3, senior applications architect 2-12 intact Eye Opening: Spontaneous Motor: Obeys Commands Verbal: Oriented GCS Score: 15 Results - Vitals Vitals: Vital Signs - 24 hr 07/02/23 07/02/23 11:52 14:04 Temperature 36.8 C Heart Rate 90 99 Respiratory 18 14 Rate Blood Pressure 126/56 L 90/59 L O2 Saturation 100 95 Oxygen O2 Source Room air - Labs Labs: Laboratory Tests 07/02/23 07/02/23 07/02/23 12:01 12:07 12:07 WBC 5.5 RBC 3.62 L Hgb 10.0 L Hct 34.5 L MCV 95.3 MCH 27.6 MCHC 29.0 L RDW 14.5 Plt Count 284 MPV 9.3 Neut # (Auto) 3.1 Lymph # (Auto) 1.6 [place] # (Auto) 0.4 Eos # (Auto) 0.3 Baso # (Auto) 0.0 Absolute Nucleated RBC 0.00 Nucleated RBC % 0.0 Sodium 146 H Potassium 4.2 Chloride 110 Carbon Dioxide 27 Anion Gap 9.0 BUN 15 Creatinine 1.1 Estimated GFR (MDRD) 49 L Glucose 137 H Calcium 9.2 Total Bilirubin 0.4 AST 9 L ALT 7 L Alkaline Phosphatase 33 L Total Protein 5.6 L Albumin 3.0 L Globulin 2.6 Albumin/Globulin Ratio 1.2 Lipase 32 Urine Color YELLOW Urine Clarity CLEAR Urine pH 5.5 Ur Specific [place]ma >=1.030 H Urine Protein NEGATIVE Urine Glucose (UA) NEGATIVE Urine Ketones TRACE Urine Occult Blood NEGATIVE Urine Nitrite POSITIVE H Urine Bilirubin NEGATIVE Urine Urobilinogen 0.2 (NORMAL) Ur Leukocyte Esterase NEGATIVE Urine RBC 0-5 Urine WBC 0-3 Ur Squamous Epith Cells MANY Squamous H Urine Bacteria Many H Urine Casts 0-2 Granular Casts Urine Mucus Few Strands Ur Microscopic Review INDICATED Urine Culture Comments NOT INDICATED PD Medical Decision Making - ED course Complexity details: reviewed results, re-evaluated patient, considered differential, d/w patient ED course: 72-year-old female presents emergency department for evaluation of 2 to 3 days left lower quadrant abdominal pain. This is a very pleasant but morbidly obese woman who is primarily bedbound. She did undergo a meningioma resection several months ago and was in rehab. Unfortunately she has never been able to ambulate after her surgery and is now primarily bedbound with her doing the totality of her care. Over the last several days she is denying nausea, vomiting or fevers. She has had no diarrhea.Abdominal exam was limited by body habitus though it did not seem peritoneal. CBC and electrolytes completed today in the emergency department were without acute worrisome findings. An in and out urine showed moderate WBCs, nitrate positive and has been reflexed to culture. Differentials considered for the source of abdominal pain included bowel obstruction, diverticulitis, nephroureterolithiasis, UTI and cancers. Unfortunately due to the patient's size we were unable to accommodate CT imaging for the patient today she would not fit in our scanner. I discussed with the patient and her this conundrum. We discussed the possibility of attempting to [facility] to obtain [facility] versus empiric treatment with antibiotics that I felt would appropriately treat both the urinary tract infection and diverticulitis. The family prefers the latter option. As such she will be started on Cipro and Flagyl. I also emailed the patient's PCP Dr. Montero to discuss the need for home health. A social work referral was made in order to help facilitate this if possible. I discussed with patient and her that if her symptoms were worsening despite the antibiotics, she develop fevers had worsening pain or fever she would need to return immediately to an ER. However different should be made to a facility that could accommodate imaging someone of her size. 4 Departure - Departure Disposition: 01 Home, Self Care Clinical Impression: LLQ abdominal pain Condition: Stable Record reviewed to determine appropriate education?: Yes Prescriptions: Ciprofloxacin HCl [Cipro] 500 mg PO BID #14 tablet metroNIDAZOLE [Flagyl] 500 mg PO BID 7 Days #14 tablet Comments: Lynne I wish you well in your journey. You were seen today for left lower abdominal pain. As discussed at the bedside unfortunately our CT scanner could not accommodate you today due to your size. Our previous CT scanner could. It is our future CT scanner should be able to. Your labs today suggest that you are developing a urinary tract infection. However there could be other causes for your left-sided abdominal pain including kidney stones, diverticulitis, mass es/cancer or even bowel obstructions. We did discuss the possibility of trying to transfer you to [facility] to obtain CT imaging versus the option of simply treating empirically with antibiotics. You have chosen to be treated with antibiotics which I think is a reasonable option. I have sent a prescription for Cipro and Flagyl to the [facility] in [place]. In theory this would treat both a urinary tract infection and diverticulitis. If you are finding over the next several days that your symptoms are not improving, you develop fevers, have worsening abdominal pain you will need to return to a hospital. However if this occurs, when you notify 911 they should transport you to a facility that can accommodate your size which [place]. I have emailed Nitza Montero your primary care doctor and requested she give you a home health referral. I have also made the referral with social work. Do not hesitate to return to the ER for any new or worsening symptoms.
[2023-07-02] MEDS ORDERED: SODIUM CHLORIDE 0.9% 1,000 ML IV STA (12:06)
[2023-07-02 12:13] LABS: BASOPHILS % (AUTO) 0.7 %; EOSINOPHILS # (AUTO) 0.3 10^3/uL (0.0-0.7); EOSINOPHILS % (AUTO) 5.8 %; HCT - HEMATOCRIT 34.5 % (37.0-47.0); LYMPHOCYTES # (AUTO) 1.6 10^3/uL (1.5-3.5); LYMPHOCYTES % (AUTO) 29.5 %; MEAN CORPUSCULAR HEMOGLOBIN 27.6 pg (27.0-31.0); MEAN CORPUSCULAR VOLUME 95.3 fL (81.0-99.0); MEAN PLATELET VOLUME 9.3 fL (7.9-10.8); MONOCYTES # (AUTO) 0.4 10^3/uL (0.0-1.0); MONOCYTES % (AUTO) 7.6 %; NEUTROPHILS # (AUTO) 3.1 10^3/uL (1.5-6.6); NEUTROPHILS % (AUTO) 55.9 %; PLT - PLATELET COUNT 284 10^3/uL (130-450); RED BLOOD COUNT 3.62 10^6/uL (4.20-5.40); RED CELL DISTRIBUTION WIDTH 14.5 % (12.0-15.0); WHITE BLOOD COUNT 5.5 x10^3/uL (4.8-10.8)
[2023-07-02 12:33] LABS: BILIRUBIN,URINE NEGATIVE (NEGATIVE); GLUCOSE, URINE (UA) NEGATIVE (NEGATIVE); KETONES,URINE (UA) TRACE mg/dL (NEGATIVE); LEUKOCYTE ESTERASE, URINE NEGATIVE (NEGATIVE); NITRITE,URINE POSITIVE (NEGATIVE); OCCULT BLOOD,URINE NEGATIVE (NEGATIVE); PH,URINE 5.5 PH (5.0-7.5); PROTEIN,URINE NEGATIVE (NEGATIVE); UROBILINOGEN,URINE 0.2 (NORMAL) E.U./dL (NORMAL)
[2023-07-02 12:34] LABS: CLARITY,URINE CLEAR (CLEAR)
[2023-07-02 12:36] LABS: ALBUMIN/GLOBULIN RATIO 1.2 (1.0-2.2); BILIRUBIN,TOTAL 0.4 mg/dL (0.2-1.0); CALCIUM 9.2 mg/dL (8.5-10.3); CREATININE 1.1 mg/dL (0.6-1.3); POTASSIUM 4.2 mmol/L (3.5-4.5); TOTAL PROTEIN 5.6 g/dL (6.4-8.9)
[2023-07-02 12:56] LABS: BACTERIA,URINE Many /HPF (None Seen); MUCUS,URINE Few Strands; RBC,URINE 0-5 /HPF (0-5); SQUAMOUS EPITHELIAL CELL,UR MANY Squamous (<= Few); WBC,URINE 0-3 /HPF (0-5)
[2023-07-02] MEDS ORDERED: cefTRIAXone 1 GM VIAL IVP STA (13:40)
[2023-07-02 14:06] VITALS: O2SAT 95
[2023-07-02] MEDS ORDERED: CIPROFLOXACIN 250 MG TABLET PO STA (14:13)
[2023-07-02] MEDS ORDERED: metroNIDAZOLE 250 MG TABLET PO STA (14:14)
[2023-07-02 15:01] VITALS: BP 119/66
== END 2023-07-02 14:59 | disposition home or self-care (01) ==
LOC: EDUNIT# → ED 11:44
DX: R10.32 Left lower quadrant pain (principal); I11.0 Hypertensive heart disease with heart failure; I50.9 Heart failure, unspecified; I48.91 Unspecified atrial fibrillation; E11.9 Type 2 diabetes mellitus without complications; Z79.84 Long term (current) use of oral hypoglycemic drugs; Z79.899 Other long term (current) drug therapy; Z79.82 Long term (current) use of aspirin
CPT/HCPCS: 36415; 51701; 80053; 81001; 83690; 85025; 96374; 99284; A9270; 81003; 87086

== ENCOUNTER 2023-07-02 15:05 | Outpatient (CLI) | payer MEDICARE, OTHER | END 2023-07-02 23:59 | disposition home or self-care (01) | LOC: EMS 15:05 | PROVIDERS: ATTEND Emergency Medicine | DX: R53.1 Weakness (principal); E66.01 Morbid (severe) obesity due to excess calories; Z74.01 Bed confinement status | CPT/HCPCS: A0425; A0428 ==

== ENCOUNTER 2023-07-27 14:52 | Outpatient (CLI) | payer MEDICARE, OTHER | END 2023-07-27 23:59 | disposition critical access hospital (66) | LOC: EMS 14:52 | DX: R53.83 Other fatigue (principal); R53.81 Other malaise; R09.89 Other specified symptoms and signs involving the circulatory and respiratory systems | CPT/HCPCS: A0425; A0427 ==

== ENCOUNTER 2023-07-27 15:29 | Emergency (ER) | payer MEDICARE, OTHER ==
[2023-07-27 15:56] LABS: BASOPHILS % (AUTO) 0.5 %; EOSINOPHILS # (AUTO) 0.4 10^3/uL (0.0-0.7); EOSINOPHILS % (AUTO) 6.4 %; HCT - HEMATOCRIT 37.8 % (37.0-47.0); HGB - HEMOGLOBIN 10.8 g/dL (12.0-16.0); LYMPHOCYTES # (AUTO) 2.3 10^3/uL (1.5-3.5); LYMPHOCYTES % (AUTO) 35.7 %; MEAN CORPUSCULAR HEMOGLOBIN 26.7 pg (27.0-31.0); MEAN CORPUSCULAR HGB CONC 28.6 g/dL (32.0-36.0); MEAN CORPUSCULAR VOLUME 93.3 fL (81.0-99.0); MEAN PLATELET VOLUME 9.7 fL (7.9-10.8); MONOCYTES # (AUTO) 0.4 10^3/uL (0.0-1.0); MONOCYTES % (AUTO) 5.9 %; NEUTROPHILS # (AUTO) 3.3 10^3/uL (1.5-6.6); PLT - PLATELET COUNT 287 10^3/uL (130-450); RED BLOOD COUNT 4.05 10^6/uL (4.20-5.40); WHITE BLOOD COUNT 6.4 x10^3/uL (4.8-10.8)
[2023-07-27 16:00] LABS: SLIDE REVIEW? Indicated
[2023-07-27 16:06] LABS: INR 1.1 (0.8-1.2); PT - PROTHROMBIN TIME 11.7 secs (9.9-12.6)
[2023-07-27 16:10] LABS: ALBUMIN 3.1 g/dL (3.2-5.5); ALBUMIN/GLOBULIN RATIO 0.9 (1.0-2.2); ALKALINE PHOSPHATASE 41 IU/L (42-121); ALT ALANINE AMINOTRANSFERASE 4 IU/L (10-60); AST ASPARTATE AMINOTRANSFERASE 13 IU/L (10-42); BILIRUBIN,TOTAL 0.3 mg/dL (0.2-1.0); BUN - BLOOD UREA NITROGEN 14 mg/dL (6-20); CALCIUM 8.6 mg/dL (8.5-10.3); CARBON DIOXIDE - CO2 29 mmol/L (21-32); CHLORIDE 104 mmol/L (101-111); CK- CREATINE KINASE 36 IU/L (30-223); CREATININE 1.2 mg/dL (0.6-1.3); ETOH - ETHANOL < 10.0 mg/dL; GFR - MDRD 44 (>89); GLUCOSE 135 mg/dL (74-104); LIPASE 49 U/L (11-82); MAGNESIUM 1.3 mg/dL (1.7-2.3); POTASSIUM 4.3 mmol/L (3.5-4.5); SODIUM 144 mmol/L (135-145); TOTAL PROTEIN 6.4 g/dL (6.4-8.9)
[2023-07-27 16:18] LABS: D-DIMER 944.3 ng/mL (200.0-255.0)
[2023-07-27 16:20] LABS: VBG BASE EXCESS 2.9 mmol/L (-2 - +2); VBG HCO3 29.6 mmol/L (23-28); VBG OXYGEN SATURATION 74.1 % (60-80); VBG PCO2 55.7 mmHg (41-51); VBG PH 7.343 (7.31-7.41); VBG TOTAL CO2 31.3 mmol/L (24-29)
[2023-07-27 16:23] LABS: PLATELET ESTIMATE, MANUAL NORMAL (130-450,000) (NORMAL); PLATELET MORPHOLOGY NORMAL APPEARANCE (NORMAL)
[2023-07-27 16:36] LABS: BILIRUBIN,URINE NEGATIVE (NEGATIVE); GLUCOSE, URINE (UA) NEGATIVE (NEGATIVE); KETONES,URINE (UA) NEGATIVE (NEGATIVE); LEUKOCYTE ESTERASE, URINE NEGATIVE (NEGATIVE); NITRITE,URINE NEGATIVE (NEGATIVE); OCCULT BLOOD,URINE MODERATE (NEGATIVE); PROTEIN,URINE TRACE mg/dL (NEGATIVE); UROBILINOGEN,URINE 0.2 (NORMAL) E.U./dL (NORMAL)
[2023-07-27] MEDS ORDERED: MAGNESIUM SULFATE 2 GRAM 2 GM/50 ML BAG IV ONE (16:44)
[2023-07-27 16:56] LABS: BACTERIA,URINE Rare /HPF (None Seen); CLARITY,URINE CLEAR (CLEAR); SQUAMOUS EPITHELIAL CELL,UR MOD Squamous (<= Few); WBC,URINE 0-3 /HPF (0-5)
[2023-07-27 16:57] LABS: AMPHETAMINE SCREEN,URINE NEGATIVE (NEGATIVE); BARBITURATE SCREEN,UR NEGATIVE (NEGATIVE); BENZODIAZEPINES SCREEN, URINE NEGATIVE (NEGATIVE); BUPRENORPHINE SCREEN, URINE NEGATIVE (NEGATIVE); COCAINE SCREEN URINE NEGATIVE (NEGATIVE); METHADONE SCREEN, URINE NEGATIVE (NEGATIVE); METHAMPHETAMINES SCREEN, URINE NEGATIVE (NEGATIVE); MUCUS,URINE Few Strands; OPIATE SCREEN, URINE NEGATIVE (NEGATIVE); OXYCODONE SCREEN, URINE POSITIVE (NEGATIVE); THC CANNABINOID SCREEN, URINE NEGATIVE (NEGATIVE); TRICYCLIC ANTIDEPRESSANT,URINE NEGATIVE (NEGATIVE)
[2023-07-27 17:20] LABS: B. PARAPERTUSSIS- RESP PCR PAN NOT DETECTED; B. PERTUSSIS- RESP PCR PANEL NOT DETECTED; C. PNEUMONIAE- RESP PCR PANEL NOT DETECTED; CORONAVIRUS 229E-RESP PCR NOT DETECTED; CORONAVIRUS HKU1-RESP PCR NOT DETECTED; CORONAVIRUS NL63-RESP PCR NOT DETECTED; CORONAVIRUS OC43-RESP PCR NOT DETECTED; HUMAN METAPNEUMOVIRUS NOT DETECTED; INFLUENZA A- RESP PCR PANEL NOT DETECTED; INFLUENZA B - RESP PCR PANEL NOT DETECTED; M. PNEUMONIAE- RESP PCR PANEL NOT DETECTED; PARAINFLUENZA VIRUS 1 NOT DETECTED; PARAINFLUENZA VIRUS 2 NOT DETECTED; PARAINFLUENZA VIRUS 3 NOT DETECTED; PARAINFLUENZA VIRUS 4 NOT DETECTED; RHINOVIRUS/ENTEROVIRUS NOT DETECTED; RSV- RESP PCR PANEL NOT DETECTED; SARS-CoV-2 -RESP PCR PANEL NOT DETECTED
--- NOTE | 2023-07-27 17:51 | ED Physician Documentation ---
History of Present Illness - Stated complaint Stated Complaint: GEN WEAKNESS - Chief complaint Chief Complaint: General - Additonal information Additional information: Patient is 72-year-old female presenting to the emergency department via EMS with concern for hypoxic respiratory failure. Per patient and family she has been suffering from malaise, somnolence, confusion and hallucinations at home for the last few days. She slept domina ntly throughout [place] which her who is present at bedside states is extremely atypical for her. EMS reports that they found her with oxygen saturations in the low 80s [facility] She was started on supplemental oxygen. She reports that she has felt tired but denies any acute symptoms such as chest pain, feelings of shortness of breath, abdominal pain, nausea, vomiting or known sick contacts. Review of Systems Constitutional: reports: Fatigue Eyes: denies: Loss of vision Ears: denies: Loss of hearing Nose: denies: Rhinorrhea / runny nose Throat: denies: Dental pain / toothache Cardiac: denies: Chest pain / pressure Respiratory: denies: Dyspnea GI: denies: Abdominal Pain : denies: Dysuria Skin: denies: Rash Musculoskeletal: denies: Neck pain Neurologic: denies: Generalized weakness Psychiatric: denies: Depressed PD PAST MEDICAL HISTORY - Past Medical History Past Medical History: Yes Cardiovascular: Congestive heart failure, Hypertension, Atrial fibrillation Respiratory: Shortness of breath Endocrine/Autoimmune: Type 2 diabetes GI: None, Other : None HEENT: Chronic vision loss Psych: None Musculoskeletal: Osteoarthritis, Other Derm: None, Rosacea - Past Surgical History Past Surgical History: Yes General: Cholecystectomy, Gastric surgery, Other - Present Medications Home Medications: Ambulatory Orders Medication Instructions Recorded Confirmed Metformin HCl [Glucophage] 1,000 mg PO BID 02/12/21 07/27/23 Metoprolol Tartrate [Lopressor] 50 mg PO BID 02/12/21 07/27/23 traMADol [Ultram] 50 mg PO QID PRN 02/12/21 07/27/23 Albuterol Sulf [Ventolin Hfa 2 puffs INH Q4HR PRN 03/06/22 07/27/23 Inhaler] Aspirin [[place] Aspirin] 81 mg PO DAILY 03/06/22 07/27/23 Acetaminophen [Pain Relief Extra 1,000 mg PO BID PRN 03/24/22 07/27/23 Strength] Furosemide [Lasix] 40 mg PO DAILY PRN 03/24/22 07/27/23 traZODone [Desyrel] 50 mg PO HS PRN 11/08/22 07/27/23 Celecoxib 200 mg PO BID 07/27/23 07/27/23 Cholecalciferol (Vitamin D3) 50 mcg PO DAILY 07/27/23 07/27/23 [Vitamin D3] Gabapentin [Neurontin] 300 mg PO BID 07/27/23 07/27/23 Levetiracetam [Keppra] 500 mg PO BID 07/27/23 07/27/23 Nystatin [Klayesta] 1 applic TP BID PRN 07/27/23 07/27/23 Omeprazole 40 mg PO DAILY 07/27/23 07/27/23 Ondansetron Odt [Zofran Odt] 4 mg TL Q8HR PRN 07/27/23 07/27/23 Ursodiol [Diamond] 3 tab PO BID 07/27/23 07/27/23 - Allergies Allergies/Adverse Reactions: Allergies Allergy/AdvReac Type Severity Reaction Status Date / Time hydrocodone [From Vicodin] Allergy Respiratory Verified 07/27/23 15:46 morphine Allergy Itching Verified 07/27/23 15:46 epinephrine AdvReac increased Verified 07/27/23 15:46 heart rate - Social History Does the pt smoke?: No Smoking Status: Never smoker Does the pt drink ETOH?: Yes Does the pt have substance abuse?: No - Immunizations Immunizations are current?: Yes - POLST Patient has POLST: No Results - Vitals Vitals: Vital Signs - 24 hr 07/27/23 07/27/23 15:46 15:52 Temperature 35.8 C L Heart Rate 88 85 Respiratory 18 18 Rate Blood Pressure 113/81 H O2 Saturation 81 L 93 If not protocol 2 : Oxygen Flow, liters/minute Oxygen O2 Source Nasal cannula Oxygen Flow Rate 2 - EKG (time done) 1550 EKG releavant findings:: EKG personally interpreted by author of this note. Relevant findings are: Sinus rhythm with rate 85 bpm. Normal axis. Normal VT, QRS, QTc intervals. No ST segment elevations. Nonspecific T wave abnormalities noted in the precordial leads.V3-V4 and V5T waves are new finding in comparison to previous EKG. - Labs Labs: Laboratory Tests 07/27/23 07/27/23 07/27/23 15:46 15:46 15:46 WBC 6.4 RBC 4.05 L Hgb 10.8 L Hct 37.8 MCV 93.3 MCH 26.7 L MCHC 28.6 L RDW 15.0 Plt Count 287 MPV 9.7 Neut # (Auto) 3.3 Lymph # (Auto) 2.3 [place] # (Auto) 0.4 Eos # (Auto) 0.4 Baso # (Auto) 0.0 Absolute Nucleated RBC 0.00 Nucleated RBC % 0.0 Manual Slide Review Indicated Platelet Estimate NORMAL (130-450,000) Platelet Morphology NORMAL APPEARANCE RBC Morph Micro Appear 1+ POLYCHROMASIA PT 11.7 INR 1.1 D-Dimer 944.3 H VBG pH VBG pCO2 VBG pO2 VBG HCO3 VBG Total CO2 VBG O2 Saturation VBG Base Excess Sodium 144 Potassium 4.3 Chloride 104 Carbon Dioxide 29 Anion Gap 11.0 BUN 14 Creatinine 1.2 Estimated GFR (MDRD) 44 L Glucose 135 H Calcium 8.6 Magnesium 1.3 L Total Bilirubin 0.3 AST 13 ALT 4 L Alkaline Phosphatase 41 L Total Creatine Kinase 36 Total Protein 6.4 Albumin 3.1 L Globulin 3.3 Albumin/Globulin Ratio 0.9 L Lipase 49 Urine Color Urine Clarity Urine pH Ur Specific [place] Urine Protein Urine Glucose (UA) Urine Ketones Urine Occult Blood Urine Nitrite Urine Bilirubin Urine Urobilinogen Ur Leukocyte Esterase Urine RBC Urine WBC Ur Squamous Epith Cells Urine Bacteria Urine Mucus Ur Microscopic Review Urine Culture Comments Nasal Adenovirus (PCR) Nasal B. parapertussis DNA (PCR) Nasal Coronavir 229E PCR Nasal Coronavir HKU1 PCR Nasal Coronavir NL63 PCR Nasal Coronavir OC43 PCR Nasal Enterovir/Rhinovir PCR Nasal Influenza B PCR Nasal Influenza A PCR Nasal Parainfluen 1 PCR Nasal Parainfluen 2 PCR Nasal Parainfluen 3 PCR Nasal Parainfluen 4 PCR Nasal RSV (PCR) Nasal B.pertussis DNA PCR Nasal C.pneumoniae (PCR) Carl Human Metapneumo PCR Nasal M.pneumoniae (PCR) Nasal SARS-CoV-2 (PCR) Urine Opiates Screen Ur Buprenorphine Scrn Ur Oxycodone Screen Urine Methadone Screen Ur Barbiturates Screen Ur Tricyclics Screen Ur Phencyclidine Scrn Ur Amphetamine Screen U Methamphetamines Scrn U Benzodiazepines Scrn Urine Cocaine Screen U Cannabinoids Screen Ur Drug Screen Comment Ethyl Alcohol < 10.0 07/27/23 07/27/23 07/27/23 15:46 15:58 16:24 WBC RBC Hgb Hct MCV MCH MCHC RDW Plt Count MPV Neut # (Auto) Lymph # (Auto) [place] # (Auto) Eos # (Auto) Baso # (Auto) Absolute Nucleated RBC Nucleated RBC % Manual Slide Review Platelet Estimate Platelet Morphology RBC Morph Micro Appear PT INR D-Dimer VBG pH 7.343 VBG pCO2 55.7 H VBG pO2 43.0 VBG HCO3 29.6 H VBG Total CO2 31.3 H VBG O2 Saturation 74.1 VBG Base Excess 2.9 H Sodium Potassium Chloride Carbon Dioxide Anion Gap BUN Creatinine Estimated GFR (MDRD) Glucose Calcium Magnesium Total Bilirubin AST ALT Alkaline Phosphatase Total Creatine Kinase Total Protein Albumin Globulin Albumin/Globulin Ratio Lipase Urine Color DARK YELLOW Urine Clarity CLEAR Urine pH 6.0 Ur Specific [place] 1.025 Urine Protein TRACE Urine Glucose (UA) NEGATIVE Urine Ketones NEGATIVE Urine Occult Blood MODERATE H Urine Nitrite NEGATIVE Urine Bilirubin NEGATIVE Urine Urobilinogen 0.2 (NORMAL) Ur Leukocyte Esterase NEGATIVE Urine RBC 6-10 H Urine WBC 0-3 Ur Squamous Epith Cells MOD Squamous H Urine Bacteria Rare Urine Mucus Few Strands Ur Microscopic Review INDICATED Urine Culture Comments NOT INDICATED Nasal Adenovirus (PCR) NOT DETECTED Nasal B. parapertussis DNA (PCR) NOT DETECTED Nasal Coronavir 229E PCR NOT DETECTED Nasal Coronavir HKU1 PCR NOT DETECTED Nasal Coronavir NL63 PCR NOT DETECTED Nasal Coronavir OC43 PCR NOT DETECTED Nasal Enterovir/Rhinovir PCR NOT DETECTED Nasal Influenza B PCR NOT DETECTED Nasal Influenza A PCR NOT DETECTED Nasal Parainfluen 1 PCR NOT DETECTED Nasal Parainfluen 2 PCR NOT DETECTED Nasal Parainfluen 3 PCR NOT DETECTED Nasal Parainfluen 4 PCR NOT DETECTED Nasal RSV (PCR) NOT DETECTED Nasal B.pertussis DNA PCR NOT DETECTED Nasal C.pneumoniae (PCR) NOT DETECTED Carl Human Metapneumo PCR NOT DETECTED Nasal M.pneumoniae (PCR) NOT DETECTED Nasal SARS-CoV-2 (PCR) NOT DETECTED Urine Opiates Screen NEGATIVE Ur Buprenorphine Scrn NEGATIVE Ur Oxycodone Screen POSITIVE H Urine Methadone Screen NEGATIVE Ur Barbiturates Screen NEGATIVE Ur Tricyclics Screen NEGATIVE Ur Phencyclidine Scrn NEGATIVE Ur Amphetamine Screen NEGATIVE U Methamphetamines Scrn NEGATIVE U Benzodiazepines Scrn NEGATIVE Urine Cocaine Screen NEGATIVE U Cannabinoids Screen NEGATIVE Ur Drug Screen Comment CUTOFF CONC BELOW: Ethyl Alcohol PD Medical Decision Making - ED course Complexity details: reviewed old records, reviewed results, re-evaluated patient, considered differential, d/w patient ED course: Patient 72-year-old female presenting to the emergency department with hypoxic respiratory failure. Arrives with new oxygen demand for 2 L via nasal cannula. Has precipitous desaturations when on room air. Is not complaining of chest pain, shortness of breath or other such symptoms. Is otherwise alert and oriented with a nonfocal nonlateralizing neurologic exam. EKG as outlined above did demonstrate some nonspecific T wave abnormalities in the precordial leads which appear to be a new finding however again patient is not complaining of chest pain or subjective shortness of breath which would be indicative of acute cardiac ischemia. She had a negative high-sensitivity troponin here in the emergency department. Her D-dimer was mildly elevated I have ordered for CTA which is pending at this time. Additionally she was noted to have some hypomagnesemia and magnesium repletion was initiated. This time I will be sending out to the oncoming physician, please see their documentation for further detail. Departure - Departure Forms: PCP List
[2023-07-27] MEDS ORDERED: MAGNESIUM OXIDE 400 MG TABLET PO STA (18:58)
[2023-07-27] MEDS ORDERED: iohexoL-300 100 ML VIAL IVP ONE (19:04)
--- NOTE | 2023-07-27 19:51 | CT Report ---
PROCEDURE: ANGIO CHEST W/WO INDICATIONS: Rule out PE CONTRAST: 80mL Omni 300 TECHNIQUE: After the administration of intravenous contrast, 2 mm axial images were acquired from the pulmonary apices to the posterior costophrenic angles during the arterial phase. In addition, 1 mm lung kernel and 5 mm soft tissue kernel reconstructions were performed. 3-dimensional coronal oblique maximum int ensity projection (MIP) reformats, 8 mm axial MIP, and 5 mm coronal and sagittal MPR reformats were t hen performed through the thorax. For radiation dose reduction, the following was used: automated exp osure control, adjustment of mA and/or kV according to patient size. COMPARISON: None. FINDINGS: Image quality: Nondiagnostic for evaluation of pulmonary embolism. Study is significantly limited sec ondary to patient positioning of her arms and motion artifact. Large vessels: No definite filling defects identified in the pulmonary arteries. No evidence to sugge st central filling defect or acute right-sided heart strain. Lungs and pleura: Diffuse groundglass opacities which may be related to inspiratory effort. No septal nodularity. Suggestion of mild septal thickening. Small bilateral pleural effusions. No dense consol idations. No pneumothorax. Mediastinum: Heart size is mildly enlarged No significant pericardial effusion. No large vessel abnor mality. No mediastinal adenopathy by size criteria. Moderate atherosclerotic vascular calcifications of the coronary arteries. Chest wall and lower neck: Thyroid is unremarkable. No axillary or supraclavicular adenopathy by size . Bones: No aggressive osseous abnormality. Upper Abdomen: Unremarkable. IMPRESSION: Nondiagnostic evaluation for acute pulmonary emboli. No definite central filling defects identified o r evidence for acute right-sided heart strain. Mild cardiomegaly with findings suggestive of pulmonary edema/CHF. Concurrent infectious or inflammat ory process not excluded if clinically appropriate. No focal consolidation. Moderate atherosclerotic vascular calcifications. Reviewed by: Aryan Flannery MD on 07/27/2023 7:50 PM PST Approved by: Aryan Flannery MD on 07/27/2023 7:50 PM PST Station ID: [id number]
[2023-07-27] MEDS ORDERED: ASPIRIN 325 MG TABLET PO STA (21:28)
[2023-07-27] MEDS ORDERED: ENOXAPARIN 100 MG/ML SYRINGE SUBQ STA (21:29)
[2023-07-27] MEDS ORDERED: cefTRIAXone 2 GM in SODIUM CHLORIDE 0.9% MINIBAG 100 ML IV STA (21:32)
[2023-07-27] MEDS ORDERED: AZITHROMYCIN INJ 500 MG in SODIUM CHLORIDE 0.9% 250 ML IV STA (21:33)
--- NOTE | 2023-07-27 21:34 | ED Physician Documentation ---
ED Addendum - Addendum Addendum: 07/27/23 21:34 Patient endorsed to me by Dr. Buck at 10pm shift change. Patient is 72yF with pmh dm2, afib, htn, chf who presented with weakness and confusion over past couple of days, with new onset hypoxia in the emergency department. Patient had ekg with abnormal percordial leads concerning for age indeterminant anterior infarct and trop 944. I've ordered 325 asa, 100U subQ lovenox in treatment of NSTEMI. CTA chest showed no central PE but was not fully diagnostic. does appear she has possible pneumonia on CT therefore rocephin/azithro and blood cultures/lactate were ordered. plan to transfer for NSTEMI, chf exacerbation, possible pneumonia, new oxygen requirement. 07/27/23 22:04 d/w transfer center who will contact cardiology. 07/27/23 22:30 d/w Dr. An, turn down attendant at who agrees with management and states patient is appropriate for transfer but given there are no beds he recommends consulting [facility] and all other [facility] hospitals and calling back tomorrow to . They state they can possibly shuffle things around and make a bed at that time. Plan to monitor overnight and endorse to incoming daytime ED MD at 7am shift change. 07/28/23 00:00 d/w transfer center at [facility] regarding patient case. she will look for beds for her. 07/28/23 02:41 Patient desatted to 55% on 2L nasal cannula briefly on the monitor. staffing operations manager went in to room, woke her, adjusted her nasal cannula and she is now 98% on 2L nasal cannula. suspect BRIAN. 07/28/23 07:53 Patient was endorsed to incoming daytime ED MD at 7am shift change.
[2023-07-27] MEDS ORDERED: cefTRIAXone 2 GM VIAL ONE (21:45)
[2023-07-27] MEDS ORDERED: FUROSEMIDE 20 MG/2 ML VIAL IVP STA (21:47)
[2023-07-28] MEDS ORDERED: ONDANSETRON 4 MG/2 ML VIAL IVP PRN (07:08)
[2023-07-28] MEDS ORDERED: ACETAMINOPHEN 500 MG TABLET PO PRN (07:08)
--- NOTE | 2023-07-28 08:04 | ED Physician Documentation ---
ED Addendum - Addendum Addendum: 07/28/23 08:03 Patient received in signout at shift change. Patient is awaiting transfer for treatment of an NSTEMI. Patient was evaluated this morning at the bedside. Denies episodes of chest pain or feeling short of air. States that she is primarily bedbound and that her does most of everything for her but in the last 2 days she has been feeling more tired. She states that if she just closes her eyes she knows that she can fall asleep which is not like her. She reports seeing a audio/video technician in the past at [facility] but has not seen this person in several years. Echocardiogram noted RV enlargement with increased PA pressures. Per chief technician x ray the left ventricle looked okay with a preserved ejection fraction. Patient had a CT angio performed yesterday to evaluate for pulmonary embolism but it was not a diagnostic study due to timing of the bolus and motion. Given echocardiogram report I do feel it would be reasonable to repeat the CT scan as a proper study. Patient signed out to oncoming provider at shift change.
[2023-07-28 08:42] LABS: CALCIUM 8.4 mg/dL (8.5-10.3); CREATININE 1.1 mg/dL (0.6-1.3); MAGNESIUM 1.4 mg/dL (1.7-2.3); POTASSIUM 3.9 mmol/L (3.5-4.5)
[2023-07-28] MEDS: PANTOPRAZOLE 40 MG TABLET PO SCH (09:43)
[2023-07-28] MEDS: ASPIRIN CHEW 81 MG TABLET PO SCH (09:43)
[2023-07-28] MEDS: ENOXAPARIN 100 MG/ML SYRINGE SUBQ SCH ×2 (09:45→20:07)
[2023-07-28] MEDS ORDERED: MAGNESIUM SULFATE 2 GRAM 2 GM/50 ML BAG IV ONE (13:33)
--- NOTE | 2023-07-28 15:16 | CONSULTATION NOTE ---
Consultation Report: Called for IV access. #20G 2.25 inch PIV placed in right brachial cephalic vein under ultrasound guidance. Aspirates heme and flushes with ease.
[2023-07-28] MEDS ORDERED: NYSTATIN CREAM 15 GM TUBE TOP STA ×2 (17:00→18:01)
--- NOTE | 2023-07-28 17:31 | CT Report ---
PROCEDURE: ANGIO CHEST W/WO INDICATIONS: PE study/hypoxia/elevated RV on echo CONTRAST: 80mL Omni 300 TECHNIQUE: After the administration of intravenous contrast, 2 mm axial images were acquired from the pulmonary apices to the posterior costophrenic angles during the arterial phase. In addition, 1 mm lung kernel and 5 mm soft tissue kernel reconstructions were performed. 3-dimensional coronal oblique maximum int ensity projection (MIP) reformats, 8 mm axial MIP, and 5 mm coronal and sagittal MPR reformats were t hen performed through the thorax. For radiation dose reduction, the following was used: automated exp osure control, adjustment of mA and/or kV according to patient size. COMPARISON: CT pulmonary angiogram 07/27/2023. FINDINGS: Image quality: Poor. Large vessels: Suspect segmental pulmonary embolism in the right posterior pulmonary artery, (3/58). No central pulmonary embolism. RV LV ratio 0.7. No additional embolus identified. Embolic burden is l ow. Lungs and pleura: Expiratory image acquisition. Scattered groundglass opacity. Dependent groundglass opacity. Trace pleural effusions. No pneumothorax. No suspicious pulmonary nodules which require foll ow up. Mediastinum: Heart size is normal. No pericardial effusion. No large vessel abnormality. No mediastin al adenopathy by size criteria. Chest wall and lower neck: Thyroid is unremarkable. No axillary or supraclavicular adenopathy by size . Bones: No aggressive osseous abnormality. Upper Abdomen: Pneumobilia again seen. Suture material at the stomach.. IMPRESSION: 1. Suspect segmental pulmonary embolism in the right pulmonary artery. No right heart strain. RV LV r atio 0.7 cm. 2. Scattered groundglass opacity. Favor atelectasis over pneumonia. Trace bilateral pleural effusions . 3. Pneumobilia noted. Results were communicated to Dr. Buck at 07/28/2023 5:29 PM PST. Reviewed by: Erwin Arroyo MD on 07/28/2023 5:30 PM PST Approved by: Erwin Arroyo MD on 07/28/2023 5:30 PM PST Station ID: [id number]
--- NOTE | 2023-07-28 17:34 | ED Physician Documentation ---
ED Addendum - Addendum Addendum: 07/28/23 17:33 I received a call from the radiologist regarding this patient's repeat CT angiogram, stating that he thinks that there actually is a pulmonary embolism in one of the segmental arteries of the pulmonary artery. There is still no sign of right heart strain. This actually makes sense in light of the patient's overall clinical picture. We will add this to the patient's presentation as we continue to try to find an inpatient setting for the patient. The patient at this time continues to be stable though still struggling with some hypoxia and needing supplemental oxygen. She currently has no new symptoms. She is already receiving Lovenox since yesterday when her troponins were found to be elevated.
[2023-07-28] MEDS: ATORVASTATIN 40 MG TABLET PO SCH (20:03)
[2023-07-28] MEDS: cefTRIAXone 1 GM in SODIUM CHLORIDE 0.9% MINIBAG 100 ML IV SCH (20:04)
[2023-07-28] MEDS: AZITHROMYCIN INJ 500 MG in SODIUM CHLORIDE 0.9% 250 ML IV SCH (20:49)
[2023-07-28] MEDS ORDERED: hydrOXYzine PAMOATE 25 MG CAPSULE PO STA (22:16)
[2023-07-29] MEDS: PANTOPRAZOLE 40 MG TABLET PO SCH (06:24)
[2023-07-29 06:35] LABS: BASOPHILS % (AUTO) 0.3 %; EOSINOPHILS # (AUTO) 0.7 10^3/uL (0.0-0.7); EOSINOPHILS % (AUTO) 11.1 %; HCT - HEMATOCRIT 31.5 % (37.0-47.0); HGB - HEMOGLOBIN 9.3 g/dL (12.0-16.0); LYMPHOCYTES # (AUTO) 1.7 10^3/uL (1.5-3.5); LYMPHOCYTES % (AUTO) 28.7 %; MEAN CORPUSCULAR HEMOGLOBIN 27.4 pg (27.0-31.0); MEAN CORPUSCULAR HGB CONC 29.5 g/dL (32.0-36.0); MEAN CORPUSCULAR VOLUME 92.9 fL (81.0-99.0); MEAN PLATELET VOLUME 9.4 fL (7.9-10.8); MONOCYTES # (AUTO) 0.5 10^3/uL (0.0-1.0); MONOCYTES % (AUTO) 7.7 %; NEUTROPHILS % (AUTO) 51.9 %; PLT - PLATELET COUNT 236 10^3/uL (130-450); RED BLOOD COUNT 3.39 10^6/uL (4.20-5.40); RED CELL DISTRIBUTION WIDTH 15.1 % (12.0-15.0); WHITE BLOOD COUNT 5.9 x10^3/uL (4.8-10.8)
[2023-07-29 06:55] LABS: CALCIUM 8.2 mg/dL (8.5-10.3); CREATININE 1.1 mg/dL (0.6-1.3); POTASSIUM 3.8 mmol/L (3.5-4.5)
[2023-07-29 07:56] LABS: MAGNESIUM 1.5 mg/dL (1.7-2.3)
[2023-07-29] MEDS ORDERED: MAGNESIUM SULFATE 2 GRAM 2 GM/50 ML BAG IV ONE ×2 (08:06→09:30)
[2023-07-29 08:35] LABS: TROPONIN I HIGH SENSITIVITY 896.8 ng/L (2.3-14.8)
[2023-07-29] MEDS: ENOXAPARIN 100 MG/ML SYRINGE SUBQ SCH ×2 (09:24→19:23)
[2023-07-29] MEDS: MAGNESIUM OXIDE 400 MG TABLET PO SCH ×2 (09:25→19:23)
[2023-07-29] MEDS: ASPIRIN CHEW 81 MG TABLET PO SCH (09:25)
[2023-07-29] MEDS ORDERED: ACETAMINOPHEN 325 MG TABLET PO STA (12:37)
--- NOTE | 2023-07-29 12:40 | ED Physician Documentation ---
ED Addendum - Addendum Addendum: 07/29/23 12:38 The patient is doing well this morning. She has no belly or chest complaints. She is not feeling dyspneic at this time. She was having some discomfort in her joints of her fingers. The pulse is good at the wrist and there is good color, temperature, capillary refill in all the fingers. Some pain with movement. She says she has had arthritis in her hands in the past. Not currently taking any medicines. She has been started on Lovenox for a PE. As such I will avoid NSAIDs at this point. However we can give Tylenol 4 times daily to help with some of the discomfort. Presume some arthritis in the fingers. It does not appear to be circulatory. She has normal sensation as well. Otherwise awaiting callback from other hospitals regarding transfer. Repeat blood tests on this morning showed a decreasing troponin down to 800s.
[2023-07-29] MEDS: ACETAMINOPHEN 325 MG TABLET PO SCH ×2 (16:22→22:04)
[2023-07-29] MEDS: cefTRIAXone 1 GM in SODIUM CHLORIDE 0.9% MINIBAG 100 ML IV SCH (19:23)
[2023-07-29] MEDS: ATORVASTATIN 40 MG TABLET PO SCH (19:23)
[2023-07-29] MEDS: oxyCODONE 5 MG TABLET PO SCH ×2 (19:23→19:38)
[2023-07-29] MEDS: AZITHROMYCIN INJ 500 MG in SODIUM CHLORIDE 0.9% 250 ML IV SCH (20:38)
[2023-07-30] MEDS: ACETAMINOPHEN 325 MG TABLET PO SCH ×4 (08:22→23:53)
[2023-07-30] MEDS: MAGNESIUM OXIDE 400 MG TABLET PO SCH ×2 (08:23→20:13)
[2023-07-30] MEDS: oxyCODONE 5 MG TABLET PO SCH ×2 (08:23→20:13)
[2023-07-30] MEDS: ENOXAPARIN 100 MG/ML SYRINGE SUBQ SCH ×2 (08:23→20:12)
[2023-07-30] MEDS: ASPIRIN CHEW 81 MG TABLET PO SCH (08:23)
[2023-07-30] MEDS: PANTOPRAZOLE 40 MG TABLET PO SCH (08:25)
--- NOTE | 2023-07-30 12:46 | ED Physician Documentation ---
ED Addendum - Addendum Addendum: 07/30/23 12:41 The patient was comfortable and relaxed this morning. She is conversant as I talked with her. Review of the nursing notes and also the current evaluation while talking with there is she is maintaining good oxygenation at 96 to 98% on 2 L nasal cannula. We will try her off oxygen and see if she still needs that extra support. She continues on Lovenox twice daily. Consideration would be changing to an DOAC rather than the Lovenox. There was no signs of heart strain based on the CT or BNP. She had had a considerable increase in her troponin which had peaked and is decreased yesterday. I did not recheck it today. There was still a fairly excessive bump in the troponin more than you might expect from just the effect of a segmental PE. Concern therefore for ischemic heart disease that was triggered by that. Risk stratification with stress imaging versus heart cath seems appropriate when not able to perform these here. She has remained without chest pain. She denies any dyspnea of just laying.The patient was comfortable and relaxed this morning. She is conversant as I talked with her. Review of the nursing notes and also the current evaluation while talking with there is she is maintaining good oxygenation at 96 to 98% on 2 L nasal cannula. We will try her off oxygen and see if she still needs that extra support. She continues on Lovenox twice daily. Consideration would be changing to an DOAC rather than the Lovenox. There was no signs of heart strain based on the CT or BNP. She had had a considerable increase in her troponin which had peaked and is decreased yesterday. I did not recheck it today. There was still a fairly excessive bump in the troponin more than you might expect from just the effect of a segmental PE. Concern therefore for ischemic heart disease that was triggered by that. Risk stratification with stress i maging versus heart cath seems appropriate when not able to perform these here. She has remained without chest pain. She denies any dyspnea of just laying. Still awaiting word on transfer to any other facility. Not excepting at this point. The case is being facilitated by [facility].
--- NOTE | 2023-07-30 12:51 | XRAY Report ---
PROCEDURE: Chest 1V INDICATIONS: persistent dyspnea TECHNIQUE: One view of the chest was acquired. COMPARISON: Chest radiograph on March 06, 2022. FINDINGS: Surgical changes and devices: None. Lungs and pleura: No pleural effusions or pneumothorax. Lungs are clear. Mediastinum: Mediastinal contours appear normal. Borderline cardiomegaly, stable. Bones and chest wall: No suspicious bony lesions. Overlying soft tissues appear unremarkable. IMPRESSION: No acute cardiopulmonary process. Reviewed by: Keron Schmid MD on 07/30/2023 12:50 PM PST Approved by: Keron Schmid MD on 07/30/2023 12:50 PM PST Station ID: [id number]
[2023-07-30] MEDS: ATORVASTATIN 40 MG TABLET PO SCH (20:13)
[2023-07-30] MEDS: cefTRIAXone 1 GM in SODIUM CHLORIDE 0.9% MINIBAG 100 ML IV SCH (20:30)
[2023-07-31 05:22] LABS: BASOPHILS % (AUTO) 0.5 %; EOSINOPHILS # (AUTO) 0.6 10^3/uL (0.0-0.7); EOSINOPHILS % (AUTO) 10.8 %; HCT - HEMATOCRIT 30.5 % (37.0-47.0); LYMPHOCYTES # (AUTO) 1.6 10^3/uL (1.5-3.5); LYMPHOCYTES % (AUTO) 28.5 %; MEAN CORPUSCULAR HEMOGLOBIN 26.8 pg (27.0-31.0); MEAN CORPUSCULAR HGB CONC 29.5 g/dL (32.0-36.0); MEAN CORPUSCULAR VOLUME 90.8 fL (81.0-99.0); MEAN PLATELET VOLUME 9.3 fL (7.9-10.8); MONOCYTES # (AUTO) 0.4 10^3/uL (0.0-1.0); MONOCYTES % (AUTO) 6.6 %; NEUTROPHILS # (AUTO) 3.1 10^3/uL (1.5-6.6); NEUTROPHILS % (AUTO) 52.9 %; PLT - PLATELET COUNT 265 10^3/uL (130-450); RED BLOOD COUNT 3.36 10^6/uL (4.20-5.40); RED CELL DISTRIBUTION WIDTH 15.1 % (12.0-15.0); WHITE BLOOD COUNT 5.8 x10^3/uL (4.8-10.8)
[2023-07-31] MEDS: ACETAMINOPHEN 325 MG TABLET PO SCH ×3 (06:02→17:40)
[2023-07-31] MEDS: oxyCODONE 5 MG TABLET PO SCH ×2 (06:03→20:40)
[2023-07-31] MEDS: PANTOPRAZOLE 40 MG TABLET PO SCH (06:04)
[2023-07-31 06:14] LABS: TROPONIN I HIGH SENSITIVITY 216.2 ng/L (2.3-14.8)
[2023-07-31 06:36] LABS: CALCIUM 8.5 mg/dL (8.5-10.3); CREATININE 1.1 mg/dL (0.6-1.3); POTASSIUM 3.9 mmol/L (3.5-4.5)
[2023-07-31] MEDS: ASPIRIN CHEW 81 MG TABLET PO SCH (09:14)
[2023-07-31] MEDS: ENOXAPARIN 100 MG/ML SYRINGE SUBQ SCH ×2 (09:15→21:00)
[2023-07-31] MEDS: MAGNESIUM OXIDE 400 MG TABLET PO SCH ×2 (09:15→21:00)
--- NOTE | 2023-07-31 18:30 | ED Physician Documentation ---
ED Addendum - Addendum Addendum: 07/31/23 18:27 Lynne Ocasio is a 72-year-old female with severe physical deconditioning and inability to ambulate who has now developed pulmonary embolism. She presented to the hospital with respiratory failure. She has now been placed on Lovenox and because of an elevated troponin she is in the que for a bed with a safety lamp keeper. A bed has not become available and her troponin has trended down from a high of >1000 to the 200 range. She has a redness to the middle finger on the left hand that has become more bothersome with erythema and tenderness. There is a question of cellulitis. She is placed on keflex for this. She has had OT and PT evaluations and will require more help at home or SNF. 07/31/23 18:29 07/31/23 18:30 07/31/23 18:36
[2023-07-31] MEDS: cefTRIAXone 1 GM in SODIUM CHLORIDE 0.9% MINIBAG 100 ML IV SCH (20:29)
[2023-07-31] MEDS: ATORVASTATIN 40 MG TABLET PO SCH (20:40)
[2023-07-31] MEDS ORDERED: cephALEXin 250 MG CAPSULE PO SCH (22:00)
[2023-08-01] MEDS: ACETAMINOPHEN 325 MG TABLET PO SCH ×5 (00:02→22:43)
[2023-08-01] MEDS: PANTOPRAZOLE 40 MG TABLET PO SCH (06:52)
[2023-08-01] MEDS: oxyCODONE 5 MG TABLET PO SCH ×2 (06:54→20:20)
--- NOTE | 2023-08-01 08:17 | ED Physician Documentation ---
ED Addendum - Addendum Addendum: 08/01/23 08:17 Patient seen and examined at the bedside. Her oxygen had become unhooked and she was down to about 87% on room air. I restarted her on her oxygen. She remains little tachycardic in the 110 range. She says she is feeling well. Her main complaint is her left middle finger. On examination she has a paronychia there. She had been started on Keflex 250 3x times daily yesterday. I will increase it to 500 4x times daily and plan to do an I&D. 08/01/23 09:42 Procedure note: Left middle finger I&D. Verbal consent was obtained. Digital block was done with 0.25% Marcaine in standard fashion with excellent anesthesia. A 18-gauge needle was used to go in the area of maximal fluctuance and what returned actually looks more like tophaceous material. She does have a history of gout. We will keep her on the antibiotics for now and follow-up a culture of the material but I suspect it is sterile gout as opposed to an infection now.
[2023-08-01] MEDS: ENOXAPARIN 100 MG/ML SYRINGE SUBQ SCH ×2 (08:42→20:21)
[2023-08-01] MEDS: ASPIRIN CHEW 81 MG TABLET PO SCH (08:43)
[2023-08-01] MEDS: MAGNESIUM OXIDE 400 MG TABLET PO SCH ×2 (08:43→20:21)
[2023-08-01] MEDS: cephALEXin 250 MG CAPSULE PO SCH ×4 (08:43→20:21)
[2023-08-01] MEDS ORDERED: BUPIVACAINE 0.25% PF 30 ML VIAL SUBQ STA (08:47)
[2023-08-01] MEDS: ATORVASTATIN 40 MG TABLET PO SCH (20:21)
[2023-08-01] MEDS ORDERED: cefTRIAXone 1 GM VIAL ONE (20:23)
[2023-08-01] MEDS: cefTRIAXone 1 GM in SODIUM CHLORIDE 0.9% MINIBAG 100 ML IV SCH (20:24)
[2023-08-02] MEDS: ACETAMINOPHEN 325 MG TABLET PO SCH ×3 (05:08→17:23)
[2023-08-02] MEDS: PANTOPRAZOLE 40 MG TABLET PO SCH (06:11)
[2023-08-02] MEDS: oxyCODONE 5 MG TABLET PO SCH ×2 (08:19→19:59)
[2023-08-02] MEDS: cephALEXin 250 MG CAPSULE PO SCH ×3 (08:19→17:23)
[2023-08-02] MEDS: ENOXAPARIN 100 MG/ML SYRINGE SUBQ SCH (08:19)
[2023-08-02] MEDS: ASPIRIN CHEW 81 MG TABLET PO SCH (08:20)
[2023-08-02] MEDS: MAGNESIUM OXIDE 400 MG TABLET PO SCH (08:20)
--- NOTE | 2023-08-02 09:52 | ED Physician Documentation ---
ED Addendum - Addendum Addendum: 08/02/23 09:49 Patient still remains boarding in the ER waiting bed availability at outlying facility for evaluation of NSTEMI and PE. The patient's oxygenation remains good. She is on just 2 L nasal cannula. We have not apparently tried her off of that per se in the last few days. Her heart rate remains tachycardic. Of note is she had been on metoprolol 50 mg twice daily prior to hospitalization. It was held initially as were watching her vital signs for stability. At this point we could reinstitute at least add a 25 mg twice daily. Her blood pressure seems adequate to support that. She had regular blood test just 2 days ago. However she is still on the Lovenox and also been in bed much of the time. We are also looking for consequence of the IL and PE in particular development of heart strain or CHF. As such I did get a chest x-ray 2 days ago that was clear. Lung sounds are still sounding clear at this point this morning. We can get a BNP as well as a basic metabolic panel with magnesium (this had been low the other day and she is on an oral supplement so to see the effectiveness), as well as platelet/blood count. These were ordered for this morning.
[2023-08-02 10:17] LABS: BASOPHILS # (AUTO) 0.1 10^3/uL (0.0-0.1); BASOPHILS % (AUTO) 0.8 %; EOSINOPHILS # (AUTO) 0.6 10^3/uL (0.0-0.7); EOSINOPHILS % (AUTO) 9.2 %; HCT - HEMATOCRIT 30.8 % (37.0-47.0); LYMPHOCYTES # (AUTO) 1.6 10^3/uL (1.5-3.5); LYMPHOCYTES % (AUTO) 26.2 %; MEAN CORPUSCULAR HEMOGLOBIN 26.6 pg (27.0-31.0); MEAN CORPUSCULAR HGB CONC 29.2 g/dL (32.0-36.0); MEAN CORPUSCULAR VOLUME 91.1 fL (81.0-99.0); MEAN PLATELET VOLUME 9.6 fL (7.9-10.8); MONOCYTES # (AUTO) 0.5 10^3/uL (0.0-1.0); MONOCYTES % (AUTO) 7.2 %; NEUTROPHILS # (AUTO) 3.5 10^3/uL (1.5-6.6); NEUTROPHILS % (AUTO) 55.8 %; PLT - PLATELET COUNT 290 10^3/uL (130-450); RED BLOOD COUNT 3.38 10^6/uL (4.20-5.40); WHITE BLOOD COUNT 6.2 x10^3/uL (4.8-10.8)
[2023-08-02 10:31] LABS: CALCIUM 8.4 mg/dL (8.5-10.3); CREATININE 1.3 mg/dL (0.6-1.3); MAGNESIUM 1.5 mg/dL (1.7-2.3); POTASSIUM 4.2 mmol/L (3.5-4.5)
[2023-08-02] MEDS ORDERED: METOPROLOL TARTRATE 25 MG TABLET PO ONE (14:00)
--- NOTE | 2023-08-02 17:40 | ED Physician Documentation ---
ED Addendum - Addendum Addendum: 08/02/23 17:36 We did receive a call from [facility] that they had beds available. I talked with Dr. Jonathan Arreguin who is the technical translator who felt it reasonable the patient be further evaluated for restratification to decide on PE alone versus acute IN as well. I conveyed our concerns with the significant elevation of troponin along with the moderate size of the PE without signs of heart strain in the echo showing regional wall abnormality of the artery the. We do not have the ability to do any stress testing or further advanced cardiology here. The technical translator felt it appropriate to go to the hospitalist system. I talked with Dr. Matos who is the hospitalist who accepts transfer of the patient. Disposition: The patient is transferred to acute care facility in stable condition. Diagnoses: 1. Acute chest pain and dyspnea 2. Acute segmental pulmonary embolus 3. Elevated troponin 4. Abnormal echocardiogram with regional wall abnormality 5. Rule out myocardial infarction
[2023-08-02 20:03] VITALS: BP 126/67; O2SAT 99
[2023-08-02] MEDS ORDERED: MUPIROCIN 2% OINT 1 GM TOP SCH (21:00)
[2023-08-02] MEDS ORDERED: METOPROLOL TARTRATE 25 MG TABLET PO SCH (21:00)
== END 2023-08-02 20:00 | disposition short-term general hospital (02) ==
LOC: EDUNIT# → EDBD → ED 15:29
DX: I26.99 Other pulmonary embolism without acute cor pulmonale (principal); J96.91 Respiratory failure, unspecified with hypoxia; I21.4 Non-ST elevation (NSTEMI) myocardial infarction; R79.1 Abnormal coagulation profile; I50.9 Heart failure, unspecified; I11.0 Hypertensive heart disease with heart failure; E83.42 Hypomagnesemia; L03.012 Cellulitis of left finger; R79.89 Other specified abnormal findings of blood chemistry; R00.0 Tachycardia, unspecified; R93.1 Abnormal findings on diagnostic imaging of heart and coronary circulation; M19.049 Primary osteoarthritis, unspecified hand; Z99.81 Dependence on supplemental oxygen; Z75.1 Person awaiting admission to adequate facility elsewhere; Z72.3 Lack of physical exercise; Z87.39 Personal history of other diseases of the musculoskeletal system and connective tissue
CPT/HCPCS: 26010; 36415; 71045; 71275; 80048; 80053; 80306; 81001; 82550; 82803; 83605; 83690; 83735; 83880; 84484; 85025; 85379; 85610; 87040; 87070; 87205; 87633; 93005; 93306; 96365; 96366; 96367; 96368; 96372; 96375; 96376; 99285; A9270; G0480; J1650; Q9967; 80320; 81003; 87086

== ENCOUNTER 2023-12-10 13:00 | Outpatient (CLI) | payer MEDICARE, OTHER | END 2023-12-10 23:59 | disposition EMS.NT | LOC: EMS 13:00 | DX: Z03.89 Encounter for observation for other suspected diseases and conditions ruled out (principal) ==

== ENCOUNTER 2024-01-22 16:10 | Outpatient (CLI) | payer MEDICARE, OTHER | END 2024-01-22 23:59 | disposition left against medical advice (07) | LOC: EMS 16:10 | DX: R40.4 Transient alteration of awareness (principal) ==